=== PATIENT | female | born 1955 | race Caucasian/White ===

== ENCOUNTER 2017-02-11 15:03 | Inpatient (IN) | payer MEDICARE ==
[2017-02-11 16:48] LABS: Troponin I Less than 0.010 ng/mL (< 0.028)
[2017-02-11] MEDS ORDERED: HYDROcodone/Acetaminophen 5/325 mg Tablet ONE (16:49)
--- NOTE | 2017-02-11 17:29 | HP ---
DATE OF ADMISSION: 02/11/2017 PRIMARY CARE PHYSICIAN: Bryson Alonso M.D. CHIEF COMPLAINT: Worsening shortness of breath and lower extremity swelling. HISTORY OF PRESENT ILLNESS: Ms. Darling is a 62-year-old female with past medical history o f chronic diastolic congestive heart failure as well as COPD, hypertension, GERD, and skin cancer who presented to the emergency room at [facility] with above-mentioned complaint. History is mainly o btained by the patient herself and electronic medical records have been reviewed. She was last admit stew to our facility last year in December and was treated for acute respiratory failure due to COPD an d CHF exacerbation. Ms. Darling reports that she has been feeling shortness of breath for the last 2 or 3 weeks. She also has been having some cough, but her main symptoms are extreme swelling of her legs which is progress ively getting worse to the point where she is not even able to move around. She complains of pain in her legs which is rather chronic for her. Upon presentation to the emergency room at [facility], she was hemodynamically stable with oxygen s aturation of 94% on room air, blood pressure 134/63, pulse of 88. She was found to have significant lower extremity swelling. A 12-lead EKG was done which was unremarkable and a chest x-ray was done, which showed cardiomegaly. Her BNP was elevated to over 400. She received 1 dose of 60 mg of IV Las ix as well as oral prednisone at 60 mg along with DuoNeb and Tylenol, and was transferred to our faci lity. Here she has remained hemodynamically stable. Her cardiac enzymes are repeated and troponin i s less than 0.010. She is now being admitted for acute CHF exacerbation along with possible COPD exa cerbation. PAST MEDICAL HISTORY: 1. COPD. 2. Chronic diastolic congestive heart failure. 3. GERD. 4. Chronic back pain. 5. The patient gives a history of gastrointestinal bleed secondary to aspirin. PAST SURGICAL HISTORY: 1. Partial hysterectomy. 2. Right shoulder and wrist surgery. 3. Skin cancer removal. 4. Left ankle surgery. CODE STATUS: FULL CODE discussed with the patient. SOCIAL HISTORY: She lives with her grandson and has history of tobacco abuse, but has quit. No drug or alcohol abuse. ALLERGIES: Multiple including AMBIEN, ERYTHROMYCIN, LEVOFLOXACIN, PENICILLIN, PHENERGAN, PHENOTHIAZI PAMELLA, PNEUMOVAX, QUINOLONE, TORADOL, ULTRAM, ZOFRAN, SOLU-MEDROL, DUONEBS, SPIRIVA, TRAMADOL, ZOFRAN, ZOLPIDEM, KETOROLAC, INFLUENZA VIRUS VACCINE, AMBIEN. CURRENT MEDICATIONS: Tylenol #3 of 4 as needed for pain, enalapril 40 mg b.i.d., sucralfate 1 gram b .i.d., Protonix 40 mg daily, acetic acid otic solution, Lasix 40 mg daily, amlodipine 5 mg daily, Com bivent as needed, metoprolol tartrate 25 mg daily, epinephrine pen subcutaneous as needed, flunisolid e spray both nares b.i.d., fluticasone nasal spray b.i.d., and Flexeril 5 mg as needed. These were f urther needed to be confirmed. REVIEW OF SYSTEMS: The following complete review of systems was negative, unless otherwise mentioned in the HPI or below: Constitutional: Weight loss or gain, ability to conduct usual activities. Skin: Rash, itching. Eyes: Double vision, pain. ENT/Mouth: Nose bleeding, neck stiffness, pain, tenderness. Cardiovascular: Palpitations, dyspnea on exertion, orthopnea. Respiratory: Shortness of breath, wheezing, cough, hemoptysis, fever or night sweats. Gastrointestinal: Poor appetite, abdominal pain, heartburn, nausea, vomiting, constipation, or diarr hea. Genitourinary: Urgency, frequency, dysuria, nocturia. Musculoskeletal: Pain, swelling. Neurologic/Psychiatric: Anxiety, depression. Allergy/Immunologic: Skin rash, bleeding tendency. It is negative except for those mentioned in the history and physical. LABORATORY DATA AND IMAGING: On laboratory examination, her CBC shows WBCs of 5.9, hemoglobin 10.4, and platelet count of 227. PT and INR within normal limits. PTT is slightly elevated at 50. Serum chemistries show blood sugar at 74, BNP of 437. Her CK-MB is 2.4, troponin less than 0.010. Chest x -ray by my review does not have any particular evidence of pulmonary vascular congestion or infiltrat e. She does have cardiomegaly. Twelve lead EKG by my review shows normal sinus rhythm as above. PHYSICAL EXAMINATION: VITAL SIGNS: Her most recent vital signs include blood pressure 149/66, pulse of 92, respirations 20 , saturating 96% on 2 liters oxygen, and temperature 97.7. GENERAL: She is in no acute distress, does appear somewhat pale, but awake, alert, and oriented x3. She is very talkative and has no respiratory issues with incessant stalking. HEENT: Mucous membrane is moist and pink. No oropharyngeal exudate or erythema. Head is normocepha lic and atraumatic. Pupils are equal and reactive to light and accommodation. Extraocular movements intact. She has skin cancer lesions on her forehead, mainly on the right side. NECK: Supple without any lymphadenopathy, JVD or bruit. CHEST: Clear to auscultation with exception of few bibasilar rales. No wheezing appreciated. Rate and rhythm is regular without any murmur, rubs or gallops. ABDOMEN: Soft with small periumbilical hernia, no guarding, rebound or rigidity. No fluid noticed. EXTREMITIES: Show significant edema, bilaterally which is rather nonpitting. VASCULAR: +2 pedal pulses felt bilaterally. NEUROLOGIC: Examination is nonfocal. SKIN: Free of any rashes, bruises or petechia. PSYCHIATRIC: Normal affect. IMPRESSION AND PLAN: 1. Acute congestive heart failure exacerbation, diastolic in nature. At this time, she will be admi tted to telemetry unit for fluid removal. We will continue her on IV Lasix along with fluid restrict ion and strict I's and O's and daily weights. We will consult [facility] for discharge and consult cardiac rehabilitation inpatient and outpatient. We will also repeat a transthoracic echoca rdiogram. Her last echocardiogram was done in 2016, which showed diastolic dysfunction with preserve d EF of 55%-60%. She did have elevated right ventricular systolic pressures in excess of 50 mmHg. T he patient will also be educated about heart failure and dietary compliance. 2. Acute chronic obstructive pulmonary disease exacerbation. She has mild exacerbation of her chron ic obstructive pulmonary disease. She gives history of using her inhalers multiple times a day witho ut benefit. At this time, she will be treated with high doses of oral steroids given her allergy to IV STEROIDS. She will be treated empirically with oral antibiotic given her presentation with cough. The patient reported that she can safely take Keflex. We will also continue with nebulizers as nee ded as well as oxygen, Mucinex and supportive care. 3. History of hypertension. We will restart her home medication.
[2017-02-11] MEDS ORDERED: hydrALAZINE 20 MG/ML VIAL SLOW IVP PRN (18:19)
[2017-02-11] MEDS ORDERED: Bisacodyl 5 MG TAB PO PRN ×2 (18:19)
[2017-02-11] MEDS ORDERED: Mag-Al 1200 mg/1200 mg/30 ML UDCUP PO PRN (18:19)
[2017-02-11] MEDS ORDERED: Senokot 8.6 MG TAB PO PRN ×2 (18:19)
[2017-02-11] MEDS ORDERED: Acetaminophen 325 MG TAB PO PRN (18:19)
[2017-02-11] MEDS ORDERED: Benzonatate 100 MG CAP PO PRN (18:19)
[2017-02-11] MEDS ORDERED: Calcium Carbonate 500 MG ChewTAB PO PRN (18:19)
[2017-02-11] MEDS ORDERED: Diabetic Tussin 200 MG/10 ML UDCUP PO PRN (18:19)
[2017-02-11] MEDS ORDERED: Loratadine 10 MG TAB PO PRN (18:19)
[2017-02-11] MEDS ORDERED: cloNIDine 0.1 MG TAB PO PRN (18:19)
[2017-02-11] MEDS ORDERED: Cephalexin 250 MG CAP PO SCH (18:45)
[2017-02-11 20:00] LABS: Troponin I Less than 0.010 ng/mL (< 0.028)
[2017-02-11] MEDS: guaiFENesin ER 600 MG TAB PO SCH (20:40)
[2017-02-11] MEDS: HYDROcodone/Acetaminophen 5/325 mg Tablet PO PRN (20:41)
[2017-02-11] MEDS: FlunisoLIDE 0.025% Nasal Spray 25 ml Bottle EA NARE SCH (20:43)
[2017-02-11] MEDS: Sucralfate 1 GM TAB PO SCH (20:43)
[2017-02-11] MEDS ORDERED: Famotidine 20 MG TAB PO SCH (21:00)
[2017-02-11] MEDS ORDERED: Furosemide 40 MG/4 ML VIAL SLOW IVP SCH (22:00)
[2017-02-11 23:11] LABS: Troponin I Less than 0.010 ng/mL (< 0.028)
[2017-02-11] MEDS: Cephalexin 250 MG CAP PO SCH (23:47)
[2017-02-12] MEDS: HYDROcodone/Acetaminophen 5/325 mg Tablet PO PRN ×5 (01:36→20:35)
[2017-02-12 05:30] LABS: #Lymphocytes 1.4 thou/uL (1.20-3.40); #Monocytes 0.4 thou/uL (0.11-0.59); #Neutrophils 2.9 thou/uL (1.40-6.50); %Basophils 0.5 % (0.0-1.0); %Eosinophils 0.2 % (0.0-10.0); %Lymphocytes 29.3 % (21.0-51.0); %Monocytes 8.6 % (0.0-10.0); Mean Platelet Volume 7.2 fL (7.4-10.4); Red Blood Cell (RBC) Count 2.91 mill/uL (4.20-5.40); White Blood Cell (WBC) Count 4.7 thou/uL (4.8-10.8)
[2017-02-12 05:45] LABS: Anion Gap 9 mmol/L (10-20); BUN (Urea Nitrogen) 12 mg/dL (9.8-20.1); Calc. Creatinine Clearance 102 mL/min (70-130); Calcium 7.6 mg/dL (7.8-10.44); Carbon Dioxide 34 mmol/L (23-31); Chloride 98 mmol/L (98-107); Estimated GFR-MDRD Greater than 90
[2017-02-12] MEDS: Furosemide 40 MG/4 ML VIAL SLOW IVP SCH ×2 (06:33→15:32)
[2017-02-12] MEDS: Cephalexin 250 MG CAP PO SCH ×3 (06:33→18:18)
--- NOTE | 2017-02-12 07:52 | ULT ---
BILATERAL LOWER EXTREMITY VENOUS DOPPLER ULTRASOUND: Date: 02/12/17 COMPARISON: None. HISTORY: Bilateral lower extremity pain, swelling, edema, redness. TECHNIQUE: Multiplanar Driver scale sonographic imaging of the venous structures of bilateral lower extremities ob tained with color flow and spectral analysis. FINDINGS: Bilateral common femoral veins, greater saphenous veins, profunda femoral veins, femoral veins, popli teal veins, and posterior tibial veins are patent. Bilateral anterior tibial veins are patent. There is normal blood flow, augmentation, and compression within the deep venous system bilaterally. No malena dence for deep venous thrombosis on either side. IMPRESSION: No evidence for deep venous thrombosis of either lower extremity. POS: [facility]
[2017-02-12] MEDS: predniSONE 50 MG TAB PO SCH (08:54)
[2017-02-12] MEDS: guaiFENesin ER 600 MG TAB PO SCH ×2 (08:54→20:34)
[2017-02-12] MEDS: Sucralfate 1 GM TAB PO SCH ×2 (08:54→20:35)
[2017-02-12] MEDS: FlunisoLIDE 0.025% Nasal Spray 25 ml Bottle EA NARE SCH ×2 (08:55→20:34)
[2017-02-12] MEDS ORDERED: Amlodipine 5 MG TAB PO SCH (09:00)
[2017-02-12] MEDS: Enoxaparin Sodium 40 MG/0.4 ML SYRINGE SC SCH (10:58)
[2017-02-12 12:32] LABS: Hematocrit 30.3 % (36.0-47.0)
--- NOTE | 2017-02-12 14:58 | PDOC.PN ---
- Subjective Encounter Start Date: 02/12/17 Encounter Start Time: 14:55 Subjective: feels better.breathing easier. -: per nursing,refusing many meds - Objective MAR Reviewed: Yes Vital Signs & Weight: Vital Signs (12 hours) Temp Pulse Resp BP Pulse Ox 02/12/17 13:22 97 22 H 98 02/12/17 12:00 98.0 F 102 H 20 149/66 H 97 02/12/17 08:03 99.3 F 94 20 112/53 L 96 02/12/17 04:00 98.4 F 97 20 120/60 96 Weight Weight 144 lb 6.4 oz I&O: 02/11/17 02/12/17 02/13/17 06:59 06:59 06:59 Intake Total 768 Balance 768 Result Diagrams: 02/12/17 12:23 02/12/17 04:00 Additional Labs: Microbiology 02/11/17 20:32 Nasopharyngeal swab Influenza Types A,B Direct EIA - Final 02/11/17 13:54 Stool - Pending Stool Occult Blood (JUAN DAVID) - Final Laboratory Tests 02/11/17 02/11/17 02/11/17 11:00 16:10 19:24 Hgb 10.4 L Troponin I Less than 0.010 Less than 0.010 02/11/17 02/12/17 22:30 04:00 Hgb 8.1 L Troponin I Less than 0.010 Phys Exam - Physical Examination Constitutional: NAD HEENT: PERRLA, moist MMs, sclera anicteric, oral pharynx no lesions Neck: no nodes, no JVD, supple, full ROM Respiratory: no wheezing, no rales, no rhonchi, clear to auscultation bilateral Cardiovascular: RRR, no significant murmur Gastrointestinal: soft, non-tender, no distention, positive bowel sounds Musculoskeletal: no edema, pulses present Neurological: non-focal, normal sensation, moves all 4 limbs Psychiatric: normal affect, A&O x 3 Skin: no rash Dx/Plan (1) Acute on chronic respiratory failure with hypoxemia Code(s): J96.21 - ACUTE AND CHRONIC RESPIRATORY FAILURE WITH HYPOXIA Status: Acute (2) Acute diastolic CHF (congestive heart failure) Code(s): I50.31 - ACUTE DIASTOLIC (CONGESTIVE) HEART FAILURE Status: Acute (3) COPD with exacerbation Code(s): J44.1 - CHRONIC OBSTRUCTIVE PULMONARY DISEASE W (ACUTE) EXACERBATION Status: Acute (4) Hypertension Code(s): I10 - ESSENTIAL (PRIMARY) HYPERTENSION Status: Chronic (5) KIMBERLY (iron deficiency anemia) Code(s): D50.9 - IRON DEFICIENCY ANEMIA, UNSPECIFIED Status: Acute - Plan continue antibiotics, respiratory therapy, incentive spirometry, out of bed/ ambulate, DVT proph w/SCDs cont diuresis w strict I/Os.monitor weight.monitor renal Fx -: ECHO pending.cont home meds. -: Pt reports H/O GIB earlier this year requiring EGD twice.No ASA/NSAIDs -: cont Sucralfate,PPI> -: Hb slightly low but no hematochezia/melena.hemodynamically stable * .on Chr home O2 * cont nebs.Pt requesting scheduled nebs.tolerating rpn w/o allergic reaction. * cont empiric ABx.Cont Steroids. * restart BB. DC amlodipine as pt does not take it at home * am labs Review of Systems - Review of Systems Constitutional: negative: Fever, Chills, Sweats, Weakness, Malaise, Other ENT: negative: Ear Pain, Ear Discharge, Nose Pain, Nose Discharge, Nose Congestion, Mouth Pain, Mouth Swelling, Throat Pain, Throat Swelling, Other Respiratory: negative: Cough, Dry, Shortness of Breath, Hemoptysis, SOB with Excertion, Pleuritic Pain, Sputum, Wheezing Cardiovascular: negative: Chest Pain, Palpitations, Orthopnea, Paroxysmal Noc. Dyspnea, Edema, Light Headedness, Other Gastrointestinal: negative: Nausea, Vomiting, Abdominal Pain, Diarrhea, Constipation, Melena, Hematochezia, Other Genitourinary: negative: Dysuria, Frequency, Incontinence, Hematuria, Retention , Other Musculoskeletal: negative: Neck Pain, Shoulder Pain, Arm Pain, Back Pain, Hand Pain, Leg Pain, Foot Pain, Other Neurological: negative: Weakness, Numbness, Incoordination, Change in Speech, Confusion, Seizures, Other - Medications/Allergies Allergies/Adverse Reactions: Allergies Allergy/AdvReac Type Severity Reaction Status Date / Time erythromycin base Allergy Verified 12/13/15 02:00 Influenza Virus Vaccines Allergy Verified 12/13/15 02:00 ketorolac tromethamine Allergy Verified 12/13/15 02:00 [From Toradol] levofloxacin [From Levaquin] Allergy Verified 12/13/15 02:00 methylprednisolone sodium Allergy Verified 12/13/15 02:00 succinate [From Solu-Medrol] ondansetron HCl Allergy Verified 12/13/15 02:00 [From Zofran (as hydrochloride)] Penicillins Allergy Verified 12/13/15 02:00 Phenothiazines Allergy Verified 12/13/15 02:00 pneumococcal vaccine Allergy Verified 12/13/15 02:00 promethazine HCl Allergy Verified 12/13/15 02:00 [From Phenergan] Quinolones Allergy Verified 12/13/15 02:00 Sulfa (Sulfonamide Allergy Verified 12/13/15 02:00 Antibiotics) tiotropium bromide Allergy Verified 12/13/15 02:00 [From Spiriva with HandiHaler] tramadol HCl [From Ultram] Allergy Verified 12/13/15 02:00 zolpidem Allergy Verified 12/13/15 02:00 blue cheese Allergy Anaphylaxis Uncoded 02/11/17 18:00 Medications: Current Medications Acetaminophen (Tylenol) 650 mg PO Q4H PRN PRN Reason: Headache/Fever or Pain Hydrocodone Bitart/Acetaminophen ([place] 5/325) 1 tab PO Q4H PRN PRN Reason: pain Last Admin: 02/12/17 11:09 Dose: 1 tab Al Hydroxide/Mg Hydroxide (Maalox) 30 ml PO Q6H PRN PRN Reason: Heartburn or Indigestion Albuterol/Ipratropium (Duoneb) 3 ml NEB [id number] PRN PRN Reason: SOB &/or Wheezing Albuterol/Ipratropium (Duoneb) 3 ml NEB [id number] [facility] Last Admin: 02/12/17 13:22 Dose: 3 ml Amlodipine Besylate (Norvasc) 5 mg PO DAILY [facility] Last Admin: 02/12/17 08:54 Dose: Not Given Benzonatate (Tessalon) 100 mg PO Q4H PRN PRN Reason: Cough Bisacodyl (Dulcolax) 10 mg PO DAILYPRN PRN PRN Reason: Constipation Calcium Carbonate (Tums) 1,000 mg PO Q4H PRN PRN Reason: Heartburn or Indigestion Cephalexin (Keflex) 250 mg PO Q6HR [facility] Last Admin: 02/12/17 11:15 Dose: 250 mg Clonidine (Catapres) 0.1 mg PO Q4H PRN PRN Reason: Systolic BP > 160 Enoxaparin Sodium (Lovenox) 40 mg SC 0900 [facility] Last Admin: 02/12/17 10:58 Dose: 40 mg Flunisolide (Nasalide 0.025%) 2 sprays EA NARE BID [facility] Last Admin: 02/12/17 08:55 Dose: 2 spr Furosemide (Lasix) 40 mg SLOW IVP 0600,1400 [facility] Last Admin: 02/12/17 06:33 Dose: 40 mg Guaifenesin (Robitussin Sf) 200 mg PO Q4H PRN PRN Reason: Cough Guaifenesin (Mucinex) 600 mg PO Q12HR [facility] Last Admin: 02/12/17 08:54 Dose: Not Given Hydralazine HCl (Apresoline) 10 mg SLOW IVP Q4H PRN PRN Reason: Systolic BP > 170 Loratadine (Claritin) 10 mg PO DAILYPRN PRN PRN Reason: Sinus Symptoms Lorazepam (Ativan) 1 mg PO Q4H PRN PRN Reason: Anxiety/Agitation Pantoprazole Sodium (Protonix) 40 mg PO DAILY [facility] Last Admin: 02/12/17 08:54 Dose: 40 mg Prednisone (Prednisone) 50 mg PO QAM-WM [facility] Last Admin: 02/12/17 08:54 Dose: 50 mg Senna (Senokot) 2 tab PO HSPRN PRN PRN Reason: Constipation Sodium Chloride (Flush - Normal Saline) 10 ml IVF Q12HR [facility] Sodium Chloride (Flush - Normal Saline) 10 ml IVF PRN PRN PRN Reason: Saline Flush Sucralfate (Carafate) 1 gm PO BID [facility] Last Admin: 02/12/17 08:54 Dose: 1 gm
[2017-02-12] MEDS: Metoprolol Tartrate 25 MG TAB PO SCH (20:35)
[2017-02-13] MEDS: Cephalexin 250 MG CAP PO SCH ×4 (00:13→18:10)
[2017-02-13] MEDS: HYDROcodone/Acetaminophen 5/325 mg Tablet PO PRN ×4 (04:07→20:54)
[2017-02-13 05:06] LABS: #Lymphocytes 1.5 thou/uL (1.20-3.40); #Monocytes 0.4 thou/uL (0.11-0.59); #Neutrophils 2.8 thou/uL (1.40-6.50); %Basophils 0.1 % (0.0-1.0); %Eosinophils 0.4 % (0.0-10.0); %Lymphocytes 31.7 % (21.0-51.0); Hematocrit 27.8 % (36.0-47.0); Mean Platelet Volume 7.3 fL (7.4-10.4); Red Blood Cell (RBC) Count 3.09 mill/uL (4.20-5.40); White Blood Cell (WBC) Count 4.6 thou/uL (4.8-10.8)
[2017-02-13 05:31] LABS: Anion Gap 10 mmol/L (10-20); BUN (Urea Nitrogen) 14 mg/dL (9.8-20.1); Calc. Creatinine Clearance 107 mL/min (70-130); Calcium 7.6 mg/dL (7.8-10.44); Carbon Dioxide 35 mmol/L (23-31); Chloride 96 mmol/L (98-107); Estimated GFR-MDRD Greater than 90
[2017-02-13] MEDS: Furosemide 40 MG/4 ML VIAL SLOW IVP SCH (06:26)
[2017-02-13] MEDS: Metoprolol Tartrate 25 MG TAB PO SCH ×2 (08:44→20:55)
[2017-02-13] MEDS: Sucralfate 1 GM TAB PO SCH ×2 (08:44→20:58)
[2017-02-13] MEDS: predniSONE 50 MG TAB PO SCH (08:45)
[2017-02-13] MEDS: guaiFENesin ER 600 MG TAB PO SCH ×3 (08:45→20:54)
[2017-02-13] MEDS: Enoxaparin Sodium 40 MG/0.4 ML SYRINGE SC SCH (08:48)
[2017-02-13] MEDS: FlunisoLIDE 0.025% Nasal Spray 25 ml Bottle EA NARE SCH ×2 (08:49→20:54)
[2017-02-13] MEDS ORDERED: Potassium Chloride 20 MEQ TAB PO SCH (09:00)
[2017-02-13] MEDS: Furosemide 20 MG TAB PO SCH ×2 (10:40→14:58)
--- NOTE | 2017-02-13 13:38 | PDOC.PN ---
- Subjective Encounter Start Date: 02/13/17 Encounter Start Time: 13:36 Subjective: feels much better. denies any SOB.some wheezing persists. -: no hematochezia/melena - Objective Resuscitation Status: Laboratory Tests 02/11/17 02/11/17 02/11/17 11:00 16:10 19:24 Hgb 10.4 L Troponin I Less than 0.010 Less than 0.010 02/11/17 02/12/17 02/12/17 22:30 04:00 12:23 Hgb 8.1 L 9.4 L Troponin I Less than 0.010 Vital Signs & Weight: Vital Signs (12 hours) Temp Pulse Resp BP Pulse Ox 02/13/17 12:35 79 18 100 02/13/17 11:00 98 F 79 14 135/63 96 02/13/17 08:15 98.5 F 86 17 94 L 02/13/17 07:30 98.5 F 86 17 121/59 L 94 L 02/13/17 06:40 96 16 99 02/13/17 04:00 97.9 F 94 16 144/67 H 95 Weight Weight 147 lb 4.8 oz I&O: 02/12/17 02/13/17 02/14/17 06:59 06:59 06:59 Intake Total 768 1340 Output Total 3150 Balance 768 -1810 Result Diagrams: 02/13/17 04:22 02/13/17 04:22 Radiology Reviewed by me: Yes (ECHO-diastolic dysfunction) Phys Exam - Physical Examination Constitutional: NAD HEENT: PERRLA, moist MMs, sclera anicteric, oral pharynx no lesions Neck: no nodes, no JVD, supple, full ROM Respiratory: no rales, wheezing present Cardiovascular: RRR, no significant murmur Gastrointestinal: soft, non-tender, no distention, positive bowel sounds Musculoskeletal: pulses present, edema present (improved) Neurological: non-focal, normal sensation, moves all 4 limbs Psychiatric: normal affect, A&O x 3 Skin: no rash Dx/Plan (1) Acute on chronic respiratory failure with hypoxemia Code(s): J96.21 - ACUTE AND CHRONIC RESPIRATORY FAILURE WITH HYPOXIA Status: Acute (2) Acute diastolic CHF (congestive heart failure) Code(s): I50.31 - ACUTE DIASTOLIC (CONGESTIVE) HEART FAILURE Status: Acute (3) COPD with exacerbation Code(s): J44.1 - CHRONIC OBSTRUCTIVE PULMONARY DISEASE W (ACUTE) EXACERBATION Status: Acute (4) Hypertension Code(s): I10 - ESSENTIAL (PRIMARY) HYPERTENSION Status: Chronic (5) KIMBERLY (iron deficiency anemia) Code(s): D50.9 - IRON DEFICIENCY ANEMIA, UNSPECIFIED Status: Acute (6) H/O: GI bleed Code(s): Z87.19 - PERSONAL HISTORY OF OTHER DISEASES OF THE DIGESTIVE SYSTEM Status: Chronic - Plan continue antibiotics, PT/OT, social worker palliative care, respiratory therapy, incentive spirometry, out of bed/ambulate, DVT proph w/SCDs Wheezing today but stable and clinically improved. -: will transfer to [facility] tomorrow. -: Change IV lasix to PO.edema improving. -: OP HF clinic F/U. -: will need HH on DC.refusing rehab placement. * .Pt advised to change BB given COPD.will d/w w PCP * H/H stable. no active GIB.cont Sucralfate,PPI. no ASA,NSAIds Review of Systems - Review of Systems Constitutional: negative: Fever, Chills, Sweats, Weakness, Malaise, Other Respiratory: SOB with Excertion, Wheezing. negative: Cough, Dry, Shortness of Breath, Hemoptysis, Pleuritic Pain, Sputum Cardiovascular: negative: Chest Pain, Palpitations, Orthopnea, Paroxysmal Noc. Dyspnea, Edema, Light Headedness, Other Gastrointestinal: negative: Nausea, Vomiting, Abdominal Pain, Diarrhea, Constipation, Melena, Hematochezia, Other Genitourinary: negative: Dysuria, Frequency, Incontinence, Hematuria, Retention , Other Musculoskeletal: negative: Neck Pain, Shoulder Pain, Arm Pain, Back Pain, Hand Pain, Leg Pain, Foot Pain, Other Neurological: negative: Weakness, Numbness, Incoordination, Change in Speech, Confusion, Seizures, Other - Medications/Allergies Allergies/Adverse Reactions: Allergies Allergy/AdvReac Type Severity Reaction Status Date / Time erythromycin base Allergy Verified 02/13/17 11:52 Influenza Virus Vaccines Allergy Verified 02/13/17 11:52 ketorolac tromethamine Allergy Verified 02/13/17 11:52 [From Toradol] levofloxacin [From Levaquin] Allergy Verified 02/13/17 11:52 methylprednisolone sodium Allergy Verified 02/13/17 11:52 succinate [From Solu-Medrol] ondansetron HCl Allergy Verified 02/13/17 11:52 [From Zofran (as hydrochloride)] Penicillins Allergy Verified 02/13/17 11:52 Phenothiazines Allergy Verified 02/13/17 11:52 pneumococcal vaccine Allergy Verified 02/13/17 11:52 promethazine HCl Allergy Verified 02/13/17 11:52 [From Phenergan] Quinolones Allergy Verified 02/13/17 11:52 Sulfa (Sulfonamide Allergy Verified 02/13/17 11:52 Antibiotics) tiotropium bromide Allergy Verified 02/13/17 11:52 [From Spiriva with HandiHaler] tramadol HCl [From Ultram] Allergy Verified 02/13/17 11:52 zolpidem Allergy Verified 02/13/17 11:52 blue cheese Allergy Severe Anaphylaxis Uncoded 02/13/17 11:52 Medications: Current Medications Acetaminophen (Tylenol) 650 mg PO Q4H PRN PRN Reason: Headache/Fever or Pain Hydrocodone Bitart/Acetaminophen ([place] 5/325) 1 tab PO Q4H PRN PRN Reason: pain Last Admin: 02/13/17 08:45 Dose: 1 tab Al Hydroxide/Mg Hydroxide (Maalox) 30 ml PO Q6H PRN PRN Reason: Heartburn or Indigestion Albuterol/Ipratropium (Duoneb) 3 ml NEB [id number] PRN PRN Reason: SOB &/or Wheezing Albuterol/Ipratropium (Duoneb) 3 ml NEB [id number] [facility] Last Admin: 02/13/17 12:35 Dose: 3 ml Benzonatate (Tessalon) 100 mg PO Q4H PRN PRN Reason: Cough Bisacodyl (Dulcolax) 10 mg PO DAILYPRN PRN PRN Reason: Constipation Calcium Carbonate (Tums) 1,000 mg PO Q4H PRN PRN Reason: Heartburn or Indigestion Cephalexin (Keflex) 250 mg PO Q6HR [facility] Last Admin: 02/13/17 10:42 Dose: 250 mg Clonidine (Catapres) 0.1 mg PO Q4H PRN PRN Reason: Systolic BP > 160 Enoxaparin Sodium (Lovenox) 40 mg SC 0900 [facility] Last Admin: 02/13/17 08:48 Dose: 40 mg Flunisolide (Nasalide 0.025%) 2 sprays EA NARE BID [facility] Last Admin: 02/13/17 08:49 Dose: 2 spr Furosemide (Lasix) 40 mg PO 0900,1400 [facility] Last Admin: 02/13/17 10:40 Dose: 40 mg Guaifenesin (Robitussin Sf) 200 mg PO Q4H PRN PRN Reason: Cough Guaifenesin (Mucinex) 600 mg PO Q12HR [facility] Last Admin: 02/13/17 10:46 Dose: Not Given Hydralazine HCl (Apresoline) 10 mg SLOW IVP Q4H PRN PRN Reason: Systolic BP > 170 Loratadine (Claritin) 10 mg PO DAILYPRN PRN PRN Reason: Sinus Symptoms Lorazepam (Ativan) 1 mg PO Q4H PRN PRN Reason: Anxiety/Agitation Metoprolol Tartrate (Lopressor) 25 mg PO BID [facility] Last Admin: 02/13/17 08:44 Dose: 25 mg Pantoprazole Sodium (Protonix) 40 mg PO DAILY [facility] Last Admin: 02/13/17 08:45 Dose: 40 mg Potassium Chloride (K-Dur) 20 meq PO QAM-[facility] Prednisone (Prednisone) 50 mg PO QAM-[facility] Last Admin: 02/13/17 08:45 Dose: 50 mg Senna (Senokot) 2 tab PO HSPRN PRN PRN Reason: Constipation Sodium Chloride (Flush - Normal Saline) 10 ml IVF Q12HR [facility] Last Admin: 02/13/17 08:46 Dose: 10 ml Sodium Chloride (Flush - Normal Saline) 10 ml IVF PRN PRN PRN Reason: Saline Flush Last Admin: 02/12/17 15:33 Dose: 10 ml Sucralfate (Carafate) 1 gm PO BID [facility] Last Admin: 02/13/17 08:44 Dose: 1 gm
[2017-02-14] MEDS: HYDROcodone/Acetaminophen 5/325 mg Tablet PO PRN ×6 (01:18→22:29)
[2017-02-14] MEDS: Cephalexin 250 MG CAP PO SCH ×4 (01:19→17:52)
[2017-02-14 06:21] LABS: Anion Gap 6 mmol/L (10-20); BUN (Urea Nitrogen) 14 mg/dL (9.8-20.1); Calc. Creatinine Clearance 121 mL/min (70-130); Calcium 7.5 mg/dL (7.8-10.44); Carbon Dioxide 37 mmol/L (23-31); Chloride 96 mmol/L (98-107); Estimated GFR-MDRD Greater than 90
[2017-02-14] MEDS: Furosemide 20 MG TAB PO SCH ×2 (09:25→14:40)
[2017-02-14] MEDS: Sucralfate 1 GM TAB PO SCH ×2 (09:26→21:46)
[2017-02-14] MEDS: guaiFENesin ER 600 MG TAB PO SCH ×2 (09:26→21:46)
[2017-02-14] MEDS: Potassium Chloride 20 MEQ TAB PO SCH (09:26)
[2017-02-14] MEDS: Metoprolol Tartrate 25 MG TAB PO SCH ×2 (09:27→21:46)
[2017-02-14] MEDS: predniSONE 50 MG TAB PO SCH (09:27)
[2017-02-14] MEDS: FlunisoLIDE 0.025% Nasal Spray 25 ml Bottle EA NARE SCH ×2 (09:27→21:46)
[2017-02-14] MEDS: Enoxaparin Sodium 40 MG/0.4 ML SYRINGE SC SCH (10:03)
[2017-02-14 12:42] LABS: Hematocrit 30.4 % (36.0-47.0)
--- NOTE | 2017-02-14 13:24 | PDOC.PN ---
- Subjective Encounter Start Date: 02/14/17 Encounter Start Time: 07:40 Pt seen for followup re: acute on chronic hypoxic respiratory failure. Reports LUQ pain, sharp, on and off, no accompanying nausea, vomiting or diarrhea, no fevers. Denies melena/hematochezia. - Objective MAR Reviewed: Yes Vital Signs & Weight: Vital Signs (12 hours) Temp Pulse Resp BP Pulse Ox 02/14/17 11:28 98.0 F 65 20 127/67 02/14/17 09:37 99.3 F 78 24 H 99 02/14/17 07:43 99.3 F 78 24 H 130/63 99 02/14/17 04:06 98.4 F 83 18 129/60 97 02/14/17 02:55 99 Weight Weight 134 lb 14.766 oz I&O: 02/13/17 02/14/17 02/15/17 06:59 06:59 06:59 Intake Total 1340 1050 Output Total 3150 1100 Balance -1810 -50 Result Diagrams: 02/14/17 12:10 02/14/17 05:25 Phys Exam - Physical Examination Constitutional: NAD HEENT: PERRLA, moist MMs, sclera anicteric, oral pharynx no lesions Neck: no nodes, no JVD, supple, full ROM Respiratory: no rales, no rhonchi, wheezing present Cardiovascular: RRR, no rub Gastrointestinal: soft, non-tender, no distention, positive bowel sounds Musculoskeletal: pulses present, edema present Neurological: moves all 4 limbs Psychiatric: normal affect, A&O x 3 Skin: no rash, normal turgor, cap refill <2 seconds Dx/Plan (1) Acute on chronic respiratory failure with hypoxemia Code(s): J96.21 - ACUTE AND CHRONIC RESPIRATORY FAILURE WITH HYPOXIA Status: Acute (2) COPD with exacerbation Code(s): J44.1 - CHRONIC OBSTRUCTIVE PULMONARY DISEASE W (ACUTE) EXACERBATION Status: Acute (3) CHF (congestive heart failure) Code(s): I50.9 - HEART FAILURE, UNSPECIFIED Status: Chronic Qualifiers: Congestive heart failure type: unspecified congestive heart failure type (4) Hypertension Code(s): I10 - ESSENTIAL (PRIMARY) HYPERTENSION Status: Chronic (5) H/O: GI bleed Code(s): Z87.19 - PERSONAL HISTORY OF OTHER DISEASES OF THE DIGESTIVE SYSTEM Status: Chronic (6) KIMBERLY (iron deficiency anemia) Code(s): D50.9 - IRON DEFICIENCY ANEMIA, UNSPECIFIED Status: Chronic - Plan continue antibiotics, PT/OT, out of bed/ambulate, DVT proph w/lovenox * . Continue oxygen, steroids, bronchodilators and antibiotics. Check stool for occult blood (h/o recurrent GI bleed, reports having gastric ulcers, now on steroids). Continue protonix, carafate. Continue Lovenox for now. If hemoglobin drops, stop Lovenox. Review of Systems - Review of Systems Constitutional: negative: Fever, Chills, Sweats, Weakness, Malaise Respiratory: Cough, Dry, Shortness of Breath, SOB with Excertion. negative: Hemoptysis, Pleuritic Pain, Sputum, Wheezing Cardiovascular: negative: Chest Pain, Palpitations, Orthopnea, Paroxysmal Noc. Dyspnea, Edema, Light Headedness Gastrointestinal: Abdominal Pain. negative: Nausea, Vomiting, Diarrhea, Constipation, Melena, Hematochezia Genitourinary: negative: Dysuria, Frequency, Incontinence, Hematuria, Retention - Medications/Allergies Allergies/Adverse Reactions: Allergies Allergy/AdvReac Type Severity Reaction Status Date / Time erythromycin base Allergy Verified 02/13/17 11:52 Influenza Virus Vaccines Allergy Verified 02/13/17 11:52 ketorolac tromethamine Allergy Verified 02/13/17 11:52 [From Toradol] levofloxacin [From Levaquin] Allergy Verified 02/13/17 11:52 methylprednisolone sodium Allergy Verified 02/13/17 11:52 succinate [From Solu-Medrol] ondansetron HCl Allergy Verified 02/13/17 11:52 [From Zofran (as hydrochloride)] Penicillins Allergy Verified 02/13/17 11:52 Phenothiazines Allergy Verified 02/13/17 11:52 pneumococcal vaccine Allergy Verified 02/13/17 11:52 promethazine HCl Allergy Verified 02/13/17 11:52 [From Phenergan] Quinolones Allergy Verified 02/13/17 11:52 Sulfa (Sulfonamide Allergy Verified 02/13/17 11:52 Antibiotics) tiotropium bromide Allergy Verified 02/13/17 11:52 [From Spiriva with HandiHaler] tramadol HCl [From Ultram] Allergy Verified 02/13/17 11:52 zolpidem Allergy Verified 02/13/17 11:52 blue cheese Allergy Severe Anaphylaxis Uncoded 02/13/17 11:52 Medications: Current Medications Acetaminophen (Tylenol) 650 mg PO Q4H PRN PRN Reason: Headache/Fever or Pain Hydrocodone Bitart/Acetaminophen ([place] 5/325) 1 tab PO Q4H PRN PRN Reason: pain Last Admin: 02/14/17 09:28 Dose: 1 tab Al Hydroxide/Mg Hydroxide (Maalox) 30 ml PO Q6H PRN PRN Reason: Heartburn or Indigestion Albuterol/Ipratropium (Duoneb) 3 ml NEB [id number] PRN PRN Reason: SOB &/or Wheezing Albuterol/Ipratropium (Duoneb) 3 ml NEB [id number] NAHID Last Admin: 02/14/17 09:19 Dose: 3 ml Benzonatate (Tessalon) 100 mg PO Q4H PRN PRN Reason: Cough Bisacodyl (Dulcolax) 10 mg PO DAILYPRN PRN PRN Reason: Constipation Calcium Carbonate (Tums) 1,000 mg PO Q4H PRN PRN Reason: Heartburn or Indigestion Cephalexin (Keflex) 250 mg PO Q6HR [facility] Last Admin: 02/14/17 11:59 Dose: 250 mg Clonidine (Catapres) 0.1 mg PO Q4H PRN PRN Reason: Systolic BP > 160 Enoxaparin Sodium (Lovenox) 40 mg SC 0900 [facility] Last Admin: 02/14/17 10:03 Dose: Not Given Flunisolide (Nasalide 0.025%) 2 sprays EA NARE BID [facility] Last Admin: 02/14/17 09:27 Dose: 2 spr Furosemide (Lasix) 40 mg PO 0900,1400 [facility] Last Admin: 02/14/17 09:25 Dose: 40 mg Guaifenesin (Robitussin Sf) 200 mg PO Q4H PRN PRN Reason: Cough Guaifenesin (Mucinex) 600 mg PO Q12HR [facility] Last Admin: 02/14/17 09:26 Dose: Not Given Hydralazine HCl (Apresoline) 10 mg SLOW IVP Q4H PRN PRN Reason: Systolic BP > 170 Loratadine (Claritin) 10 mg PO DAILYPRN PRN PRN Reason: Sinus Symptoms Lorazepam (Ativan) 1 mg PO Q4H PRN PRN Reason: Anxiety/Agitation Metoprolol Tartrate (Lopressor) 25 mg PO BID [facility] Last Admin: 02/14/17 09:27 Dose: 25 mg Pantoprazole Sodium (Protonix) 40 mg PO DAILY [facility] Last Admin: 02/14/17 09:27 Dose: 40 mg Potassium Chloride (K-Dur) 20 meq PO [facility] Last Admin: 02/14/17 09:26 Dose: 20 meq Prednisone (Prednisone) 50 mg PO [facility] Last Admin: 02/14/17 09:27 Dose: 50 mg Senna (Senokot) 2 tab PO HSPRN PRN PRN Reason: Constipation Sodium Chloride (Flush - Normal Saline) 10 ml IVF Q12HR [facility] Last Admin: 02/14/17 09:28 Dose: 10 ml Sodium Chloride (Flush - Normal Saline) 10 ml IVF PRN PRN PRN Reason: Saline Flush Last Admin: 02/12/17 15:33 Dose: 10 ml Sucralfate (Carafate) 1 gm PO BID [facility] Last Admin: 02/14/17 09:26 Dose: 1 gm
[2017-02-15] MEDS: Cephalexin 250 MG CAP PO SCH ×4 (00:16→21:14)
[2017-02-15] MEDS: HYDROcodone/Acetaminophen 5/325 mg Tablet PO PRN ×5 (02:56→21:14)
[2017-02-15 06:11] LABS: BUN (Urea Nitrogen) 15 mg/dL (9.8-20.1); Calc. Creatinine Clearance 109 mL/min (70-130); Calcium 7.5 mg/dL (7.8-10.44); Estimated GFR-MDRD Greater than 90
[2017-02-15 06:25] LABS: Anion Gap 11 mmol/L (10-20); Carbon Dioxide 35 mmol/L (23-31); Chloride 95 mmol/L (98-107)
[2017-02-15] MEDS: Metoprolol Tartrate 25 MG TAB PO SCH ×2 (07:37→21:14)
[2017-02-15] MEDS: Furosemide 20 MG TAB PO SCH ×2 (07:37→17:01)
[2017-02-15] MEDS: guaiFENesin ER 600 MG TAB PO SCH ×2 (07:38→21:17)
[2017-02-15] MEDS: Potassium Chloride 20 MEQ TAB PO SCH (07:38)
[2017-02-15] MEDS: predniSONE 50 MG TAB PO SCH (07:43)
[2017-02-15] MEDS: Sucralfate 1 GM TAB PO SCH ×2 (07:43→21:17)
[2017-02-15] MEDS ORDERED: Potassium Chloride 20 MEQ TAB PO SCH (09:30)
[2017-02-15 09:45] LABS: #Lymphocytes 1.1 thou/uL (1.20-3.40); #Monocytes 0.6 thou/uL (0.11-0.59); #Neutrophils 5.9 thou/uL (1.40-6.50); %Basophils 0.2 % (0.0-1.0); %Eosinophils 0.3 % (0.0-10.0); %Lymphocytes 14.4 % (21.0-51.0); %Monocytes 7.3 % (0.0-10.0); Hematocrit 29.5 % (36.0-47.0); Mean Platelet Volume 6.8 fL (7.4-10.4); Red Blood Cell (RBC) Count 3.25 mill/uL (4.20-5.40); White Blood Cell (WBC) Count 7.6 thou/uL (4.8-10.8)
[2017-02-15] MEDS: Lorazepam 1 MG TAB PO PRN (10:30)
[2017-02-15] MEDS: FlunisoLIDE 0.025% Nasal Spray 25 ml Bottle EA NARE SCH ×2 (10:31→21:16)
[2017-02-15 10:34] VITALS: BMI 149.7
--- NOTE | 2017-02-15 15:59 | PDOC.PN ---
- Subjective Encounter Start Date: 02/15/17 Encounter Start Time: 08:40 Pt seen for followup re: acute on chronic respiratory failure. Denies chest pain. SOBOE better. No abdo pain. - Objective MAR Reviewed: Yes Vital Signs & Weight: Vital Signs (12 hours) Temp Pulse Resp BP Pulse Ox 02/15/17 12:29 87 20 96 02/15/17 12:00 97.9 F 77 20 128/52 L 02/15/17 08:15 98.8 F 88 20 126/55 L 96 02/15/17 06:48 82 16 97 02/15/17 05:22 99.2 F 80 20 136/64 98 Weight Admit Weight 150 lb 3 oz Weight 135 lb 5 oz I&O: 02/14/17 02/15/17 02/16/17 06:59 06:59 06:59 Intake Total 1050 1690 Output Total 1100 Balance -50 1690 Result Diagrams: 02/15/17 09:38 02/15/17 05:17 Phys Exam - Physical Examination Constitutional: NAD HEENT: moist MMs Neck: supple Respiratory: wheezing present Cardiovascular: RRR Gastrointestinal: soft, non-tender Musculoskeletal: pulses present, edema present Neurological: moves all 4 limbs Psychiatric: normal affect Skin: no rash Dx/Plan (1) Acute on chronic respiratory failure with hypoxemia Code(s): J96.21 - ACUTE AND CHRONIC RESPIRATORY FAILURE WITH HYPOXIA Status: Acute (2) COPD with exacerbation Code(s): J44.1 - CHRONIC OBSTRUCTIVE PULMONARY DISEASE W (ACUTE) EXACERBATION Status: Acute (3) CHF (congestive heart failure) Code(s): I50.9 - HEART FAILURE, UNSPECIFIED Status: Chronic Qualifiers: Congestive heart failure type: unspecified congestive heart failure type (4) Hypertension Code(s): I10 - ESSENTIAL (PRIMARY) HYPERTENSION Status: Chronic (5) H/O: GI bleed Code(s): Z87.19 - PERSONAL HISTORY OF OTHER DISEASES OF THE DIGESTIVE SYSTEM Status: Chronic (6) KIMBERLY (iron deficiency anemia) Code(s): D50.9 - IRON DEFICIENCY ANEMIA, UNSPECIFIED Status: Chronic - Plan PT/OT, out of bed/ambulate, DVT proph w/lovenox * . Switch lasix to oral. Likely home 24-48 h Review of Systems - Review of Systems Respiratory: Cough, Shortness of Breath, SOB with Excertion. negative: Dry, Hemoptysis, Pleuritic Pain, Sputum, Wheezing Cardiovascular: negative: Chest Pain, Palpitations, Orthopnea, Paroxysmal Noc. Dyspnea, Edema, Light Headedness - Medications/Allergies Allergies/Adverse Reactions: Allergies Allergy/AdvReac Type Severity Reaction Status Date / Time erythromycin base Allergy Verified 02/13/17 11:52 Influenza Virus Vaccines Allergy Verified 02/13/17 11:52 ketorolac tromethamine Allergy Verified 02/13/17 11:52 [From Toradol] levofloxacin [From Levaquin] Allergy Verified 02/13/17 11:52 methylprednisolone sodium Allergy Verified 02/13/17 11:52 succinate [From Solu-Medrol] ondansetron HCl Allergy Verified 02/13/17 11:52 [From Zofran (as hydrochloride)] Penicillins Allergy Verified 02/13/17 11:52 Phenothiazines Allergy Verified 02/13/17 11:52 pneumococcal vaccine Allergy Verified 02/13/17 11:52 promethazine HCl Allergy Verified 02/13/17 11:52 [From Phenergan] Quinolones Allergy Verified 02/13/17 11:52 Sulfa (Sulfonamide Allergy Verified 02/13/17 11:52 Antibiotics) tiotropium bromide Allergy Verified 02/13/17 11:52 [From Spiriva with HandiHaler] tramadol HCl [From Ultram] Allergy Verified 02/13/17 11:52 zolpidem Allergy Verified 02/13/17 11:52 blue cheese Allergy Severe Anaphylaxis Uncoded 02/13/17 11:52 Medications: Current Medications Acetaminophen (Tylenol) 650 mg PO Q4H PRN PRN Reason: Headache/Fever or Pain Hydrocodone Bitart/Acetaminophen ([place] 5/325) 1 tab PO Q4H PRN PRN Reason: pain Last Admin: 02/15/17 12:32 Dose: 1 tab Al Hydroxide/Mg Hydroxide (Maalox) 30 ml PO Q6H PRN PRN Reason: Heartburn or Indigestion Albuterol/Ipratropium (Duoneb) 3 ml NEB [id number] PRN PRN Reason: SOB &/or Wheezing Albuterol/Ipratropium (Duoneb) 3 ml NEB [id number] NAHID Last Admin: 02/15/17 12:29 Dose: 3 ml Benzonatate (Tessalon) 100 mg PO Q4H PRN PRN Reason: Cough Bisacodyl (Dulcolax) 10 mg PO DAILYPRN PRN PRN Reason: Constipation Calcium Carbonate (Tums) 1,000 mg PO Q4H PRN PRN Reason: Heartburn or Indigestion Cephalexin (Keflex) 250 mg PO Q6HR [facility] Last Admin: 02/15/17 12:33 Dose: 250 mg Clonidine (Catapres) 0.1 mg PO Q4H PRN PRN Reason: Systolic BP > 160 Enoxaparin Sodium (Lovenox) 40 mg SC 0900 [facility] Last Admin: 02/14/17 10:03 Dose: Not Given Flunisolide (Nasalide 0.025%) 2 sprays EA NARE BID [facility] Last Admin: 02/15/17 10:31 Dose: 2 spr Furosemide (Lasix) 40 mg PO DAILY[facility] Guaifenesin (Robitussin Sf) 200 mg PO Q4H PRN PRN Reason: Cough Guaifenesin (Mucinex) 600 mg PO Q12HR [facility] Last Admin: 02/15/17 07:38 Dose: Not Given Hydralazine HCl (Apresoline) 10 mg SLOW IVP Q4H PRN PRN Reason: Systolic BP > 170 Loratadine (Claritin) 10 mg PO DAILYPRN PRN PRN Reason: Sinus Symptoms Lorazepam (Ativan) 1 mg PO Q4H PRN PRN Reason: Anxiety/Agitation Last Admin: 02/15/17 10:30 Dose: 1 mg Metoprolol Tartrate (Lopressor) 25 mg PO BID [facility] Last Admin: 02/15/17 07:37 Dose: 25 mg Pantoprazole Sodium (Protonix) 40 mg PO DAILY [facility] Last Admin: 02/15/17 07:38 Dose: 40 mg Potassium Chloride (K-Dur) 20 meq PO QAM[facility] Last Admin: 02/15/17 07:38 Dose: 20 meq Prednisone (Prednisone) 50 mg PO QAM[facility] Last Admin: 02/15/17 07:43 Dose: 50 mg Senna (Senokot) 2 tab PO HSPRN PRN PRN Reason: Constipation Sodium Chloride (Flush - Normal Saline) 10 ml IVF Q12HR [facility] Last Admin: 02/15/17 10:31 Dose: 10 ml Sodium Chloride (Flush - Normal Saline) 10 ml IVF PRN PRN PRN Reason: Saline Flush Last Admin: 02/12/17 15:33 Dose: 10 ml Sucralfate (Carafate) 1 gm PO BID NAHID Last Admin: 02/15/17 07:43 Dose: 1 gm
[2017-02-15] MEDS: Enoxaparin Sodium 40 MG/0.4 ML SYRINGE SC SCH (16:59)
[2017-02-16] MEDS: HYDROcodone/Acetaminophen 5/325 mg Tablet PO PRN ×3 (01:26→09:33)
[2017-02-16] MEDS: Cephalexin 250 MG CAP PO SCH ×4 (04:54→17:21)
[2017-02-16 05:52] LABS: #Lymphocytes 1.7 thou/uL (1.20-3.40); #Monocytes 0.8 thou/uL (0.11-0.59); #Neutrophils 3.9 thou/uL (1.40-6.50); %Basophils 0.1 % (0.0-1.0); %Eosinophils 0.6 % (0.0-10.0); %Lymphocytes 26.6 % (21.0-51.0); %Monocytes 12.1 % (0.0-10.0); Hematocrit 27.8 % (36.0-47.0); Mean Platelet Volume 7.3 fL (7.4-10.4); Red Blood Cell (RBC) Count 3.08 mill/uL (4.20-5.40); White Blood Cell (WBC) Count 6.4 thou/uL (4.8-10.8)
[2017-02-16 06:17] LABS: BUN (Urea Nitrogen) 17 mg/dL (9.8-20.1); Calc. Creatinine Clearance 101 mL/min (70-130); Calcium 7.6 mg/dL (7.8-10.44); Estimated GFR-MDRD Greater than 90
[2017-02-16 06:26] LABS: Anion Gap 11 mmol/L (10-20); Carbon Dioxide 35 mmol/L (23-31); Chloride 94 mmol/L (98-107)
[2017-02-16] MEDS: Furosemide 40 MG TAB PO SCH (08:55)
[2017-02-16] MEDS: Metoprolol Tartrate 25 MG TAB PO SCH ×2 (08:55→20:46)
[2017-02-16] MEDS: Potassium Chloride 20 MEQ TAB PO SCH ×3 (08:56→12:52)
[2017-02-16] MEDS: Enoxaparin Sodium 40 MG/0.4 ML SYRINGE SC SCH (08:57)
[2017-02-16] MEDS: predniSONE 50 MG TAB PO SCH (08:57)
[2017-02-16] MEDS: FlunisoLIDE 0.025% Nasal Spray 25 ml Bottle EA NARE SCH (08:58)
[2017-02-16] MEDS: guaiFENesin ER 600 MG TAB PO SCH ×2 (08:58→21:04)
[2017-02-16] MEDS: Sucralfate 1 GM TAB PO SCH ×2 (08:59→20:46)
--- NOTE | 2017-02-16 12:05 | DIS ---
DATE OF ADMISSION: 02/11/2017 DATE OF DISCHARGE: 02/16/2017 PRIMARY CARE PROVIDER: Shital Méndez NP DISCHARGE DIAGNOSES: 1. Acute on chronic hypoxic respiratory failure. 2. Acute diastolic congestive heart failure. 3. Chronic obstructive pulmonary disease exacerbation. CONDITION OF PATIENT ON THE DAY OF DISCHARGE: Stable. I assessed Ms. Darling on the day of discharge . She denies any chest pain or shortness of breath. PHYSICAL EXAMINATION: VITAL SIGNS: Stable. HEART: S1 and S2 are heard, regular. LUNGS: Clear to auscultation bilaterally. DISCHARGE MEDICATIONS: Tylenol #3 one tablet every 8 hours as needed, ProAir HFA 2 puffs every 4 luz rs as needed, acetic acid otic solution 3-4 drops to right ear 3 times a day, Keflex 250 mg every 6 h ours for 3 more days, Flexeril 5 mg every 6 hours as needed, epinephrine p.r.n., Flonase allergy reli ef 1 spray to each naris 2 times a day, Lasix 40 mg daily, metoprolol 25 mg 2 times a day, Protonix 4 0 mg daily, K-Dur 10 mEq daily, prednisone 10 mg Dosepak and Carafate 1 gram 2 times a day. HOSPITAL COURSE: Ms. Darling is a pleasant 62-year-old lady, who was admitted to [facility] on 02/11/2017 for acute on chronic hypoxic respiratory failure secondary to acute diast olic failure as well as chronic obstructive pulmonary disease exacerbation. A 2D echocardiogram show ed a normal left ventricular function with an ejection fraction estimated at 55-60%. She had mild mi tral regurgitation and mild to moderate tricuspid regurgitation. She improved with oxygen, steroids, bronchodilators and antibiotics and diuretics. She is being discharged home in a stable condition. She refused home health, penitentiary unit evaluation and inpatient rehabilitation evaluation. She is advised to follow up with her primary care provider and have her creatinine and electrolytes c hecked. Many thanks for allowing me to participate in your patient's care. Please feel free to contact me wi th any questions or concerns. On the day of discharge, she has a white count 6400, hemoglobin 8.4 and platelet count 250. Sodium 1 37, potassium 3.2, which is being replaced, blood urea nitrogen 0.55. DISCHARGE DESTINATION: Home. TOTAL AMOUNT OF TIME SPENT COORDINATING THIS DISCHARGE: 33 minutes.
[2017-02-16] MEDS: Acetaminophen/Codeine 30-300mg Tablet PO PRN ×2 (12:54→20:51)
[2017-02-16] MEDS: Lorazepam 1 MG TAB PO PRN (20:53)
[2017-02-17] MEDS: Acetaminophen/Codeine 30-300mg Tablet PO PRN (03:38)
[2017-02-17] MEDS: Cephalexin 250 MG CAP PO SCH ×2 (03:39→08:49)
[2017-02-17 05:41] LABS: Anion Gap 8 mmol/L (10-20); BUN (Urea Nitrogen) 17 mg/dL (9.8-20.1); Calc. Creatinine Clearance 113 mL/min (70-130); Calcium 7.9 mg/dL (7.8-10.44); Carbon Dioxide 36 mmol/L (23-31); Chloride 97 mmol/L (98-107); Estimated GFR-MDRD Greater than 90
[2017-02-17] MEDS ORDERED: Potassium Chloride 20 MEQ TAB PO SCH (08:00)
[2017-02-17] MEDS: Lorazepam 1 MG TAB PO PRN (08:47)
[2017-02-17] MEDS: predniSONE 50 MG TAB PO SCH (08:47)
[2017-02-17] MEDS: Metoprolol Tartrate 25 MG TAB PO SCH (08:48)
[2017-02-17] MEDS: Furosemide 40 MG TAB PO SCH (08:48)
[2017-02-17] MEDS: Enoxaparin Sodium 40 MG/0.4 ML SYRINGE SC SCH (08:49)
[2017-02-17] MEDS: FlunisoLIDE 0.025% Nasal Spray 25 ml Bottle EA NARE SCH (08:49)
[2017-02-17] MEDS: guaiFENesin ER 600 MG TAB PO SCH (08:49)
[2017-02-17] MEDS: Sucralfate 1 GM TAB PO SCH (08:50)
[2017-02-17 11:03] VITALS: BP 126/74; TEMP 98.8
--- NOTE | 2017-02-17 13:37 | EKG ---
Test Reason : Blood Pressure : / mmHG Vent. Rate : 089 BPM Atrial Rate : 089 BPM P-R Int : 130 ms QRS Dur : 096 ms QT Int : 392 ms P-R-T Axes : 052 -32 050 degrees QTc Int : 476 ms Normal sinus rhythm Left axis deviation Nonspecific ST and T wave abnormality Prolonged QT Abnormal ECG Confirmed by ANNI BIRMINGHAM, MICKEY Ortega (17), magazine editor KANDI COLÓN ([id number]) on 02/17/2017 1:36:26 PM Referred By: Confirmed By:MICKEY HUTTON MD
== END 2017-02-17 10:20 | disposition home or self-care (01) | DRG 291 ==
LOC: ERS 15:03 → 2NO 17:35 → 3SE 02-13 14:19
PROVIDERS: ADMIT Internal Medicine; ATTEND Internal Medicine
DX: I11.0 Hypertensive heart disease with heart failure (principal); J96.21 Acute and chronic respiratory failure with hypoxia; J44.1 Chronic obstructive pulmonary disease with (acute) exacerbation; I50.33 Acute on chronic diastolic (congestive) heart failure; K21.9 Gastro-esophageal reflux disease without esophagitis; Z85.828 Personal history of other malignant neoplasm of skin; G89.29 Other chronic pain; M54.9 Dorsalgia, unspecified; Z88.1 Allergy status to other antibiotic agents; Z88.0 Allergy status to penicillin; Z88.7 Allergy status to serum and vaccine; Z88.8 Allergy status to other drugs, medicaments and biological substances; D50.9 Iron deficiency anemia, unspecified; M25.571 Pain in right ankle and joints of right foot
CPT/HCPCS: 36415; 80048; 82274; 85014; 85018; 85025; 93005; 93306; 93798; 93970; 94640; A4216; J1650; J1940; J7620

== ENCOUNTER 2017-04-21 21:40 | Inpatient (IN) | payer MEDICARE ==
--- NOTE | 2017-04-21 22:41 | ULT ---
LEFT LOWER EXTREMITY VENOUS DUPLEX EXAM: 04/21/17 HISTORY: Leg pain and edema. Real time color doppler evaluation of the left lower extremity was performed from groin to calf. This includes evaluation common femoral, superficial and profunda femoral, saphenous, popliteal and trifu rcation veins. This shows patent deep venous system with normal compressibility and augmentation. The re is no evidence of DVT. Extensive edema changes seen within the soft tissues suggesting cellulitis. IMPRESSION: No evidence of DVT. POS: RONNIE
[2017-04-21 23:37] LABS: #Lymphocytes 0.7 thou/uL (1.20-3.40); #Neutrophils 6.3 thou/uL (1.40-6.50); %Basophils 0.2 % (0.0-1.0); %Eosinophils 0.1 % (0.0-10.0); %Lymphocytes 9.5 % (21.0-51.0); %Monocytes 0.1 % (0.0-10.0); %Neutrophils 90.1 % (42.0-75.0); Hemoglobin 10.1 g/dL (12.0-16.0); Mean Corpuscular Hemoglobin 28.4 pg (27.0-31.0); Mean Corpuscular Volume 88.7 fl (81.0-99.0); Mean Platelet Volume 6.3 fL (7.4-10.4); Platelet Count 284 thou/uL (130-400); RBC Distribution Width 15.1 % (11.5-14.5); Red Blood Cell (RBC) Count 3.57 mill/uL (4.20-5.40)
[2017-04-21 23:59] LABS: ALT (SGPT) Less than 7 U/L (8-55); AST (SGOT) 18 U/L (5-34); Albumin 2.8 g/dL (3.4-4.8); Alkaline Phosphatase 114 U/L (40-150); Anion Gap 13 mmol/L (10-20); BUN (Urea Nitrogen) 11 mg/dL (9.8-20.1); Bilirubin, Total 0.3 mg/dL (0.2-1.2); Calc. Creatinine Clearance 0 mL/min (70-130); Calcium 8.4 mg/dL (7.8-10.44); Carbon Dioxide 27 mmol/L (23-31); Chloride 101 mmol/L (98-107); Estimated GFR-MDRD Greater than 90; Globulin 3.7 g/dL (2.4-3.5); Glucose 133 mg/dL (80-115); Potassium 3.4 mmol/L (3.5-5.1); Protein, Total 6.5 g/dL (6.0-8.3); Sodium 138 mmol/L (136-145)
[2017-04-22] MEDS ORDERED: predniSONE 20 MG TAB PO SCH (01:15)
[2017-04-22 01:23] VITALS: BMI 24.3
[2017-04-22] MEDS: Acetaminophen/Codeine 30-300mg Tablet PO PRN ×5 (01:42→22:24)
--- NOTE | 2017-04-22 04:40 | HP-2 ---
TIME AND DATE OF SERVICE: 23:45 on 04/21/2017. CODE STATUS: FULL CODE. PRIMARY CARE PHYSICIAN: Sandro soot. ATTENDING: Dr. Paez. RESIDENT: Caesar Sánchez MD HISTORIAN: The patient. CHIEF COMPLAINT: Shortness of breath and leg pain. HISTORY OF PRESENT ILLNESS: Irais Darling is a 62-year-old female with past medical history of hy pertension, CHF, and chronic obstructive pulmonary disease, who presents with a week long history of increased shortness of breath, cough, and increased sputum production. She has also got a 5-day hist ory of right leg swelling, redness, and pain since hitting her leg on a stair. She states that she h as had cellulitis off and on for the past month and she has taken Keflex which helped a little bit, b ut did not completely fix her leg. She states that she is on home O2 p.r.n. whenever she gets some s hortness of breath. In the ER, she received ceftriaxone. PAST MEDICAL HISTORY: 1. Hypertension. 2. Gastroesophageal reflux disease. 3. Chronic obstructive pulmonary disease. 4. Chronic diastolic congestive heart failure. 5. Chronic back pain. PAST SURGICAL HISTORY: 1. Partial hysterectomy. 2. Right shoulder and wrist surgery. 3. Skin cancer removal. 4. Left ankle surgery. ALLERGIES: 1. ERYTHROMYCIN BASE. 2. INFLUENZA VIRUS VACCINES. 3. KETOROLAC. 4. LEVOFLOXACIN. 5. METHYLPREDNISOLONE. 6. ZOFRAN. 7. PENICILLINS. 8. PHENOTHIAZINES. 9. PNEUMOCOCCAL VACCINE. 10. PROMETHAZINE. 11. QUINOLONES. 12. SULFA. 13. TIOTROPIUM BROMIDE. 14. ZOLPIDEM. 15. BLUE CHEESE. MEDICATIONS: 1. Acetaminophen/codeine 300mg/30 mg p.o. q.8 h. p.r.n. 2. Enalapril 40 mg p.o. b.i.d. 3. Sucralfate 1 gram p.o. b.i.d. 4. Pantoprazole 40 mg p.o. daily. 5. Flexeril 5 mg p.o. daily. 6. Metoprolol tartrate 25 mg p.o. daily. 7. Acetic acid 2% otic, 3-4 drops in right ear. 8. Epinephrine 1 mL subcutaneous p.r.n. 9. Flunisolide 25 mcg b.i.d. 10. Furosemide 40 mg p.o. daily. 11. Combivent 18 mcg/103 mcg 2 puffs INH p.r.n. 12. Fluticasone 1 spray b.i.d. REVIEW OF SYSTEMS: Twelve point review of systems including general, eyes, ENT, respiratory, CV, GI, , skin, musculoskeletal, neuro, and psych were all reviewed and were negative, unless otherwise st ated in HPI. Patient did also endorse 101 degree fever at home. PHYSICAL EXAMINATION: VITAL SIGNS: Blood pressure 167/101, pulse 98, respiratory rate 20, T-max 97.5, pulse ox 97% on 2 li ters. Current weight 62 kilograms. GENERAL: The patient is alert and oriented x4, no acute distress, well-developed, well-nourished, an d appropriately interactive. HEENT: Pupils equal, round, react to light and accommodation. Extraocular muscles intact. Conjunct ruddy within normal limits. ENT: Tympanic membranes pearly lewis without bulging or erythema. Nasal mucosa and oropharynx within normal limits. The patient had poor dentition. NECK: Supple, without lymphadenopathy or thyromegaly. CARDIOVASCULAR: Regular rate and rhythm. No murmurs or gallops. RESPIRATORY: Normal effort, no retractions. Diffuse wheezes present and decreased air movement bila terally. SKIN: Warm and dry. The patient's left lower extremity has erythema and warmth to distal left later al and anterior leg. ABDOMEN: Soft, nontender. Bowel sounds normoactive. No mass or distention. EXTREMITIES: No clubbing, cyanosis, 2+ nonpitting edema bilaterally. MUSCULOSKELETAL: Structure and tone within normal limits. Full range of motion. NEUROLOGIC: No focal deficits. Sensation within normal limits. PSYCHIATRIC: Appropriate. LABORATORY DATA: White blood cell count 7.0, hemoglobin 10.1, hematocrit 31.6, platelets 284. Sodiu m 139, potassium 4.1, chloride 100, bicarbonate 29, BUN 13, creatinine 0.51, glucose 77, calcium 8.4, total protein 6.5, albumin 2.7, total bilirubin 0.3, AST 19, ALT 7, alkaline phosphatase 113. ESR 5 2. D-dimer 2.16, INR 1.1, PT 14.1, PTT 57.2, CK 32, CK-MB 2.6, troponin I 0.014, BNP 86.7. Chest x- ray showed cardiomegaly, but no acute cardiopulmonary process. Pelvic x-ray showed no fractures. Va scular ultrasound showed no DVT. ASSESSMENT AND PLAN: A 62-year-old female with 1-week history of cough, sputum production, and 1-wee k history of leg pain, swelling, and redness: 1. Chronic obstructive pulmonary disease exacerbation. Admit to medical on home O2, baseline is 2 l iters p.r.n. Continue p.r.n. supplemental O2. Start prednisone 40 mg daily for 5 days, start doxycy chaparro secondary to medication allergies. Continue home inhalers. 2. Cellulitis of left lower extremity. Start doxycycline. Patient failed outpatient treatment with Keflex. Has allergies to several other antibiotics. 3. Gastroesophageal reflux disease. Continue home medications. 4. Hypertension. Continue home medications. 5. Deep venous thrombosis prophylaxis. The patient has history of gastrointestinal bleeding, so sta rt sequential compression devices. 6. Diet: Heart healthy. 7. Code status: FULL CODE. DISPOSITION AND LENGTH OF HOSPITAL STAY: 2 days. Symptomatic medication will be provided. History and physical exam as well as management were discussed with Dr. Paez.
[2017-04-22 04:48] LABS: #Lymphocytes 0.7 thou/uL (1.20-3.40); #Neutrophils 3.4 thou/uL (1.40-6.50); %Eosinophils 0.1 % (0.0-10.0); %Lymphocytes 17.1 % (21.0-51.0); %Monocytes 0.6 % (0.0-10.0); %Neutrophils 82.2 % (42.0-75.0); Hemoglobin 9.2 g/dL (12.0-16.0); Mean Corpuscular HGB CONC 31.8 g/dL (32.0-36.0); Mean Corpuscular Hemoglobin 28.4 pg (27.0-31.0); Mean Corpuscular Volume 89.3 fl (81.0-99.0); Mean Platelet Volume 6.7 fL (7.4-10.4); Platelet Count 278 thou/uL (130-400); RBC Distribution Width 15.2 % (11.5-14.5); Red Blood Cell (RBC) Count 3.24 mill/uL (4.20-5.40); White Blood Cell (WBC) Count 4.1 thou/uL (4.8-10.8)
[2017-04-22] MEDS ORDERED: Acetaminophen/Codeine 30-300mg Tablet PO PRN (06:38)
[2017-04-22] MEDS ORDERED: PROVENTIL INHALER 6.7 G (200 INHALATIONS) INH PRN (06:38)
[2017-04-22] MEDS: Furosemide 40 MG TAB PO SCH (08:35)
[2017-04-22] MEDS: predniSONE 20 MG TAB PO SCH (08:35)
[2017-04-22] MEDS: Potassium Chloride 10 MEQ TAB PO SCH (08:35)
[2017-04-22] MEDS: Metoprolol Tartrate 25 MG TAB PO SCH ×2 (08:36→21:36)
[2017-04-22] MEDS ORDERED: Doxycycline 100 MG CAP PO SCH ×2 (09:00→21:00)
[2017-04-22] MEDS ORDERED: ACETIC ACID R EAR SCH (09:00)
[2017-04-22] MEDS: Fluticasone Propionate Nasal Spray 16 gm Bottle NASAL SCH ×2 (10:00→21:36)
[2017-04-22] MEDS: Sucralfate 1 GM TAB PO SCH ×2 (10:00→21:36)
[2017-04-23] MEDS: Acetaminophen/Codeine 30-300mg Tablet PO PRN ×6 (02:22→23:27)
[2017-04-23 04:41] LABS: #Lymphocytes 1.5 thou/uL (1.20-3.40); #Monocytes 0.6 thou/uL (0.11-0.59); #Neutrophils 4.9 thou/uL (1.40-6.50); %Basophils 0.6 % (0.0-1.0); %Eosinophils 0.1 % (0.0-10.0); %Lymphocytes 21.3 % (21.0-51.0); %Monocytes 7.8 % (0.0-10.0); %Neutrophils 70.3 % (42.0-75.0); Hemoglobin 8.2 g/dL (12.0-16.0); Mean Corpuscular Hemoglobin 27.6 pg (27.0-31.0); Platelet Count 281 thou/uL (130-400); RBC Distribution Width 15.6 % (11.5-14.5); Red Blood Cell (RBC) Count 2.98 mill/uL (4.20-5.40)
[2017-04-23 05:08] LABS: ALT (SGPT) Less than 7 U/L (8-55); AST (SGOT) 10 U/L (5-34); Albumin 2.6 g/dL (3.4-4.8); Alkaline Phosphatase 85 U/L (40-150); Anion Gap 5 mmol/L (10-20); BUN (Urea Nitrogen) 17 mg/dL (9.8-20.1); Bilirubin, Total 0.2 mg/dL (0.2-1.2); Calc. Creatinine Clearance 91 mL/min (70-130); Calcium 8.3 mg/dL (7.8-10.44); Carbon Dioxide 35 mmol/L (23-31); Chloride 103 mmol/L (98-107); Estimated GFR-MDRD Greater than 90; Globulin 3.2 g/dL (2.4-3.5); Glucose 127 mg/dL (80-115); Potassium 3.5 mmol/L (3.5-5.1); Protein, Total 5.8 g/dL (6.0-8.3); Sodium 139 mmol/L (136-145)
--- NOTE | 2017-04-23 06:43 | PDOC.FM ---
- Subjective Subjective: Denies feeling short of breath this am. No acute events overnight. States her swelling in her leg started after she fell and hurt her left hip. Says she got an xray done at the prior hospital before transferred here and they told her she pulled a muscle. This injury happened about a week ago. States the redness in her lower extremity started a few months ago. Has many allergies, but says she has had rocephin before. - Objective MAR Reviewed: Yes Vital Signs & Weight: Vital Signs (12 hours) Temp Pulse Resp BP Pulse Ox 04/23/17 06:34 95 18 97 04/23/17 04:27 98.4 F 99 14 136/77 97 04/23/17 01:43 99 12 96 04/23/17 00:45 98.3 F 99 20 156/83 H 96 04/22/17 23:24 112 H 16 04/22/17 20:00 97.7 F 112 H 20 153/78 H 96 04/22/17 18:42 104 H 16 94 L Weight Weight 62.369 kg I&O: 04/21/17 04/22/17 04/23/17 06:59 06:59 06:59 Intake Total 480 Balance 480 Result Diagrams: 04/23/17 03:56 04/23/17 03:56 <Malena Torres - Last Filed: 04/23/17 09:01> - Objective Vital Signs & Weight: Vital Signs (12 hours) Temp Pulse Resp BP Pulse Ox 04/23/17 11:37 90 16 99 04/23/17 08:00 97.6 F 90 16 172/82 H 97 04/23/17 06:34 95 18 97 04/23/17 04:27 98.4 F 99 14 136/77 97 04/23/17 01:43 99 12 96 04/23/17 00:45 98.3 F 99 20 156/83 H 96 Weight Weight 62.369 kg I&O: 04/22/17 04/23/17 04/24/17 06:59 06:59 06:59 Intake Total 480 Balance 480 Result Diagrams: 04/23/17 03:56 04/23/17 03:56 <Stef Khan - Last Filed: 04/23/17 12:42> Phys Exam - Physical Examination Constitutional: NAD HEENT: PERRLA dry MM Neck: no JVD wheezing bilaterally and decreased air movement bilaterally Cardiovascular: RRR, no significant murmur Gastrointestinal: soft, non-tender edema of left lower extremity with diffuse erythema to knee combination of pitting and nonpitting edema Neurological: non-focal Psychiatric: normal affect, A&O x 3 Deviation from normal: cap refill>2sec <Malena Torres - Last Filed: 04/23/17 09:01> Dx/Plan (1) Left leg cellulitis Code(s): L03.116 - CELLULITIS OF LEFT LOWER LIMB Status: Acute (2) COPD with exacerbation Code(s): J44.1 - CHRONIC OBSTRUCTIVE PULMONARY DISEASE W (ACUTE) EXACERBATION Status: Acute (3) GERD (gastroesophageal reflux disease) Code(s): K21.9 - GASTRO-ESOPHAGEAL REFLUX DISEASE WITHOUT ESOPHAGITIS Status: Acute - Plan Plan: COPD exacerbation, controlled on prednisone 40mg daily, duonebs scheduled q4h, albuterol prn. Pt has a lot of allergies documented. She initially was started on doxycycline, which was dc'd yesterday. Plan to start rocephin today for both her COPD exacerbation and LLE cellulitis Left Lower Extremity Cellulitis-Pt has many documented allergies. Initially was started on doxycycline yesterday, which was discontinued. It appears that she has taken vanc and rocephin the past. Will start rocephin as she says she was given that in the ER yesterday and did not have any side effects. GERD-protonix <Malena Torres - Last Filed: 04/23/17 09:01> Attending Addendum - Attending Addendum I personally evaluated the patient and discussed the management with Dr. Mick Munoz. I agree with the History, Examination, Assessment and Plan documented above with any addition or exceptions noted below. Patient admitted for hypoxic respiratory failure 2/2 obstructive airway disease. Patient refutes smoking history, therefore she may not have COPD. This may represent severe untreated asthma. Neb treatments, PO steroids have been started, and we will add ICS/LABA combo for better control. She feels improved and respiratory status is stable, but continues to have significant exp wheezes. Her Bicarb has increased this morning, and I would have some mild concern for CO2 retention. If respiratory status changes at all, or if she becomes altered or somnolent, will need stat ABG. Mild cellulitis of the LE, will continue Rocephin as patient has a host of allergies to abx. <Stef Khan R - Last Filed: 04/23/17 12:42>
[2017-04-23] MEDS: Potassium Chloride 10 MEQ TAB PO SCH (08:06)
[2017-04-23] MEDS: Sucralfate 1 GM TAB PO SCH ×2 (08:06→21:32)
[2017-04-23] MEDS: predniSONE 20 MG TAB PO SCH (08:06)
[2017-04-23] MEDS: Fluticasone Propionate Nasal Spray 16 gm Bottle NASAL SCH ×2 (08:06→21:31)
[2017-04-23] MEDS: Furosemide 40 MG TAB PO SCH (08:06)
[2017-04-23] MEDS: Metoprolol Tartrate 25 MG TAB PO SCH ×2 (08:07→21:31)
[2017-04-23] MEDS ORDERED: cefTRIAXone\\ROCEPHIN 1 GM in Sodium Chloride 0.9% 100 ML IVPB SCH (09:15)
[2017-04-23] MEDS: cefTRIAXone\\ROCEPHIN 1 GM, Syringe 0.4 ML in Sterile Water 9.6 ML SLOW IVP SCH (10:37)
--- NOTE | 2017-04-23 13:19 | CON ---
DATE OF CONSULTATION: 04/23/2017 REASON FOR CONSULTATION: Cellulitis, left leg. HISTORY OF PRESENT ILLNESS: A 62-year-old who has a history of hypertension, COPD with asthma, and d iastolic CHF, who has also chronic lymphedema of lower extremities. The patient has noticed what she describes as redness and swelling of the lower extremity left side for the past month for which he t ook Keflex with some improvement, but then recrudescence. She came to the ER and was admitted. She also had some dyspnea and required O2 supplementation. Currently, she is awake and alert, minimal pa in left leg. The ocular movements are conjugate. Oral cavity normal. No dental pain. No back pain . Mild dyspnea. No chest pain, no sputum production, no abdominal pain, no genitourinary symptoms, no joint symptoms. PAST MEDICAL HISTORY: Hypertension, gastroesophageal reflux disease, COPD, diastolic CHF, back pain. Lymphedema is not listed here, but she obviously has evidence of chronic lymphedema and venous insu fficiency in both lower extremities. PAST SURGICAL HISTORY: Partial hysterectomy, right shoulder surgery, wrist surgery, skin cancer nicholas oscar, and left ankle surgery. ALLERGIES: ERYTHROMYCIN, INFLUENZA VACCINE, KETOROLAC, LEVOFLOXACIN, PREDNISONE, PENICILLIN, PROMETH AZINE, SULFA DRUGS, AMBIEN. MEDICATIONS: At home are enalapril, acetaminophen, sucralfate, pantoprazole, Flexeril, metoprolol, a cetic acid, furosemide, Combivent, fluticasone. FAMILY HISTORY: Noncontributory. SOCIAL HISTORY: Never a smoker. PHYSICAL EXAMINATION: VITAL SIGNS: T-max 98.4, blood pressure 170/80, pulse 90, respirations 16, O2 sat 97% on 2 liters na hamilton cannula. GENERAL: Appears in no distress. Awake, alert, and oriented. A little bit tachypneic, little bit o f wheezing expiratory in right and left hemithoraces. HEART: S1 and S2, regular rate. ABDOMEN: Soft, not distended. EXTREMITIES: Bilateral lymphedema of lower extremities with venous insufficiency. [place] colored er ythema left leg, mild tenderness. Erythema extends from the area below the knee all the way to the f oot in a circumferential distribution. No blistering is noted. Pulses are diminished in dorsalis pe dis, but she has quite a bit of lymphedema, so that makes it hard to evaluate pulses. She is able to move extremities. LABORATORY DATA: White cell count 7.0 and now 7.0, hemoglobin 10, MCV 88, platelets 284, 90% neutrop hils which has decreased to 70% neutrophils. The chemistry with creatinine 0.5, glucose 133, albumin 2.8. A vascular ultrasound before yesterday with no evidence of deep vein thrombosis. ASSESSMENT: Chronic lymphedema of lower extremities, chronic obstructive pulmonary disease associate d with asthma, but no smoking history and now with possible cellulitis. She has very mild changes an d this could represent just stasis dermatitis, but I believe it is worthwhile to continue treatment w ith Rocephin alone since beta-hemolytic streptococcus will be the most likely culprit in this patient 's inflammatory process. After that, transition to oral Keflex and secondary prophylaxis with penici llin V for 1 year. The patient would benefit from wearing compression device such as stockings or wr ap.
[2017-04-24] MEDS: Acetaminophen/Codeine 30-300mg Tablet PO PRN ×5 (03:29→22:02)
[2017-04-24 04:58] LABS: #Lymphocytes 1.7 thou/uL (1.20-3.40); #Monocytes 0.4 thou/uL (0.11-0.59); #Neutrophils 3.7 thou/uL (1.40-6.50); %Basophils 0.2 % (0.0-1.0); %Eosinophils 0.4 % (0.0-10.0); %Lymphocytes 28.7 % (21.0-51.0); %Monocytes 7.6 % (0.0-10.0); Hemoglobin 8.2 g/dL (12.0-16.0); Mean Corpuscular Hemoglobin 27.9 pg (27.0-31.0); Mean Corpuscular Volume 90.2 fl (81.0-99.0); Mean Platelet Volume 6.7 fL (7.4-10.4); Platelet Count 233 thou/uL (130-400); RBC Distribution Width 15.4 % (11.5-14.5); Red Blood Cell (RBC) Count 2.92 mill/uL (4.20-5.40); White Blood Cell (WBC) Count 5.8 thou/uL (4.8-10.8)
[2017-04-24 05:13] LABS: ALT (SGPT) Less than 7 U/L (8-55); AST (SGOT) 9 U/L (5-34); Albumin 2.7 g/dL (3.4-4.8); Alkaline Phosphatase 81 U/L (40-150); Anion Gap 8 mmol/L (10-20); BUN (Urea Nitrogen) 18 mg/dL (9.8-20.1); Bilirubin, Total 0.2 mg/dL (0.2-1.2); Calc. Creatinine Clearance 109 mL/min (70-130); Calcium 8.1 mg/dL (7.8-10.44); Carbon Dioxide 33 mmol/L (23-31); Chloride 101 mmol/L (98-107); Estimated GFR-MDRD Greater than 90; Globulin 2.9 g/dL (2.4-3.5); Glucose 93 mg/dL (80-115); Potassium 3.4 mmol/L (3.5-5.1); Protein, Total 5.6 g/dL (6.0-8.3); Sodium 139 mmol/L (136-145)
--- NOTE | 2017-04-24 06:57 | PDOC.FM ---
- Subjective Subjective: No acute events overnight. Complaining of midepigastric and left upper quadrant abdominal pain. Also states she lost 10-15 pounds over the past year. Says she has a hx of GI ulcers. Had an EGD done in 2012. Also states that her abdominal hernia has been more painful, but is still reducible. - Objective MAR Reviewed: Yes Vital Signs & Weight: Vital Signs (12 hours) Temp Pulse Resp BP Pulse Ox 04/24/17 06:05 94 16 97 04/24/17 05:13 98.2 F 94 18 145/74 H 98 04/24/17 03:03 96 18 98 04/24/17 00:54 98.4 F 96 18 157/77 H 98 04/23/17 23:22 92 18 97 04/23/17 21:47 98.2 F 96 18 161/92 H 100 04/23/17 20:00 98.2 F 96 18 100 04/23/17 19:33 100 20 98 Weight Weight 62.369 kg I&O: 04/22/17 04/23/17 04/24/17 06:59 06:59 06:59 Intake Total 480 480 Balance 480 480 Result Diagrams: 04/24/17 04:40 04/24/17 04:40 <Malena Torres - Last Filed: 04/24/17 09:23> - Objective Vital Signs & Weight: Vital Signs (12 hours) Temp Pulse Resp BP Pulse Ox 04/24/17 09:41 100 20 97 04/24/17 08:05 98.0 F 100 12 136/76 99 04/24/17 06:05 94 16 97 04/24/17 05:13 98.2 F 94 18 145/74 H 98 04/24/17 03:03 96 18 98 04/24/17 00:54 98.4 F 96 18 157/77 H 98 Weight Weight 62.369 kg I&O: 04/23/17 04/24/17 04/25/17 06:59 06:59 06:59 Intake Total 480 480 Balance 480 480 Result Diagrams: 04/24/17 04:40 04/24/17 04:40 <Stef Khan - Last Filed: 04/24/17 12:06> Phys Exam - Physical Examination Constitutional: NAD HEENT: PERRLA, moist MMs Neck: no JVD wheezing bilaterally and decreased breath sounds bilaterally Cardiovascular: RRR Gastrointestinal: soft umbilical hernia, reducible edema of right lower extremity, erythema of right lower extremity Neurological: non-focal, normal sensation Psychiatric: normal affect, A&O x 3 <Malena Torres - Last Filed: 04/24/17 09:23> Dx/Plan (1) Left leg cellulitis Code(s): L03.116 - CELLULITIS OF LEFT LOWER LIMB Status: Acute (2) COPD with exacerbation Code(s): J44.1 - CHRONIC OBSTRUCTIVE PULMONARY DISEASE W (ACUTE) EXACERBATION Status: Acute (3) GERD (gastroesophageal reflux disease) Code(s): K21.9 - GASTRO-ESOPHAGEAL REFLUX DISEASE WITHOUT ESOPHAGITIS Status: Acute (4) Chronic acquired lymphedema Code(s): I89.0 - LYMPHEDEMA, NOT ELSEWHERE CLASSIFIED Status: Acute (5) Stasis dermatitis Code(s): I87.2 - VENOUS INSUFFICIENCY (CHRONIC) (PERIPHERAL) Status: Acute (6) PUD (peptic ulcer disease) Code(s): K27.9 - PEPTIC ULC, SITE UNSP, UNSP AC OR CHR, W/O HEMOR OR PERF Status: Acute (7) Umbilical hernia Code(s): K42.9 - UMBILICAL HERNIA WITHOUT OBSTRUCTION OR GANGRENE Status: Acute (8) HTN (hypertension) Code(s): I10 - ESSENTIAL (PRIMARY) HYPERTENSION Status: Acute (9) Normocytic anemia Code(s): D64.9 - ANEMIA, UNSPECIFIED Status: Acute - Plan Plan: 62 yo f with COPD admitted for COPD exacerbation and left lower extremity cellulitis vs stasis dermatitis and lymphedema. COPD exacerbation, uncontrolled. Currently on prednisone 40mg daily, duonebs scheduled q4h, albuterol prn. Pt has a lot of allergies documented. She initially was started on doxycycline, which was dc'd yesterday. Plan to start rocephin today for both her COPD exacerbation and LLE cellulitis. Will schedule a continous 10ml duoneb treatment as pt is persistently wheezing and having decreased air movement. States she is allergic to most combined ICS/LABA inhalers. Can't take advair, symbicort, dulera. Will try pulmacort through her nebulizer. Left Lower Extremity Cellulitis vs stasis dermatitis and lymphedema-Pt has many documented allergies. Will continue rocephin as she says she was given that in the ER yesterday and did not have any side effects. Will switch to keflex upon discharge for a total of 10 days. Appreciate recs from Dr. Cruz. Hx of PUD-continue protonix. Will order an FOBT and H.pylori. She had an EGD in 2012. Consider EGD. Abdominal Hernia-reducible but painful. Recommend outpatient follow-up GERD-protonix Anemia-Will order b12/folate/iron studies. She has a downtrending H/H to 8.2/ 26.5 HTN-uncontrolled. Will increase enalapril. <Malena Torres - Last Filed: 04/24/17 09:23> Attending Addendum - Attending Addendum I personally evaluated the patient and discussed the management with Dr. Mick Munoz. I agree with the History, Examination, Assessment and Plan documented above with any addition or exceptions noted below. Patient with subjective improvement, but continues to have diminished air entry b/l along with expiratory wheezes, some better today. She is very resistant to begin new medications. We will add Pulmicort to her neb regimen today. Continue steroids. Her bicarb is down somewhat so less concern about severe CO2 retention. Continue to wean O2 as tolerated. Continue Rocephin IV for mild LLE cellulitis. <Stef Khan - Last Filed: 04/24/17 12:06>
[2017-04-24 07:32] LABS: Iron 41 ug/dL (50-170); Iron Binding Capacity, Total 211 mcg/dL (265-497)
[2017-04-24 08:22] LABS: Folate (Folic Acid) 3.4 ng/mL (7.0-31.4)
[2017-04-24] MEDS: predniSONE 20 MG TAB PO SCH (08:23)
[2017-04-24] MEDS: Furosemide 40 MG TAB PO SCH (08:24)
[2017-04-24] MEDS: Metoprolol Tartrate 25 MG TAB PO SCH ×2 (08:25→20:23)
[2017-04-24] MEDS: Potassium Chloride 10 MEQ TAB PO SCH (08:25)
[2017-04-24] MEDS: Cyclobenzaprine 10 MG TAB PO PRN ×3 (08:34→20:54)
[2017-04-24] MEDS: cefTRIAXone\\ROCEPHIN 1 GM, Syringe 0.4 ML in Sterile Water 9.6 ML SLOW IVP SCH (08:34)
[2017-04-24] MEDS: Sucralfate 1 GM TAB PO SCH ×2 (08:35→20:23)
[2017-04-24] MEDS: Fluticasone Propionate Nasal Spray 16 gm Bottle NASAL SCH ×2 (09:06→20:23)
[2017-04-24] MEDS ORDERED: Budesonide 0.5 MG/2 ML NEB INH SCH (14:45)
[2017-04-24] MEDS: Budesonide 0.5 MG/2 ML NEB INH SCH (19:17)
[2017-04-24] MEDS: Montelukast Sodium 10 mg Tablet PO SCH (20:26)
[2017-04-25] MEDS: Acetaminophen/Codeine 30-300mg Tablet PO PRN ×5 (01:58→20:50)
[2017-04-25] MEDS: Cyclobenzaprine 10 MG TAB PO PRN ×4 (03:03→21:51)
[2017-04-25 05:56] LABS: #Lymphocytes 1.6 thou/uL (1.20-3.40); #Monocytes 0.6 thou/uL (0.11-0.59); #Neutrophils 2.7 thou/uL (1.40-6.50); %Basophils 0.6 % (0.0-1.0); %Eosinophils 0.5 % (0.0-10.0); %Lymphocytes 32.9 % (21.0-51.0); %Monocytes 11.3 % (0.0-10.0); %Neutrophils 54.6 % (42.0-75.0); Hemoglobin 8.3 g/dL (12.0-16.0); Mean Corpuscular HGB CONC 31.4 g/dL (32.0-36.0); Mean Corpuscular Hemoglobin 28.4 pg (27.0-31.0); Mean Corpuscular Volume 90.4 fl (81.0-99.0); Mean Platelet Volume 6.7 fL (7.4-10.4); Platelet Count 201 thou/uL (130-400); RBC Distribution Width 15.4 % (11.5-14.5); Red Blood Cell (RBC) Count 2.91 mill/uL (4.20-5.40)
[2017-04-25] MEDS: Budesonide 0.5 MG/2 ML NEB INH SCH ×2 (06:02→19:21)
[2017-04-25 06:19] LABS: ALT (SGPT) Less than 7 U/L (8-55); AST (SGOT) 8 U/L (5-34); Albumin 2.6 g/dL (3.4-4.8); Alkaline Phosphatase 84 U/L (40-150); Anion Gap 9 mmol/L (10-20); BUN (Urea Nitrogen) 15 mg/dL (9.8-20.1); Bilirubin, Total 0.2 mg/dL (0.2-1.2); Calc. Creatinine Clearance 109 mL/min (70-130); Calcium 7.8 mg/dL (7.8-10.44); Carbon Dioxide 35 mmol/L (23-31); Chloride 100 mmol/L (98-107); Estimated GFR-MDRD Greater than 90; Glucose 94 mg/dL (80-115); Potassium 3.5 mmol/L (3.5-5.1); Protein, Total 5.6 g/dL (6.0-8.3); Sodium 140 mmol/L (136-145)
--- NOTE | 2017-04-25 06:47 | PDOC.FM ---
- Subjective Subjective: No acute events overnight. Pt denies feeling short of breath. She is complaining of left hip pain which she says is from a fall she had over a week ago. She states she got xrays done and did not have a fracture. She says the muscle relaxer is helping with the pain that seems to be coming from a muscle strain in her upper thigh. - Objective MAR Reviewed: Yes Vital Signs & Weight: Vital Signs (12 hours) Temp Pulse Resp BP Pulse Ox 04/25/17 09:30 91 16 96 04/25/17 07:21 97.8 F 91 20 162/80 H 98 04/25/17 06:02 83 14 97 04/25/17 04:55 98.1 F 85 17 135/73 96 04/25/17 02:05 98 12 04/25/17 00:26 98.3 F 82 16 129/73 98 Weight Weight 62.369 kg I&O: 04/24/17 04/25/17 04/26/17 06:59 06:59 06:59 Intake Total 480 Balance 480 Result Diagrams: 04/25/17 05:26 04/25/17 05:26 <Luis Godoy - Last Filed: 04/25/17 11:23> - Subjective Subjective: No acute events overnight. Pt denies feeling short of breath. She is complaining of left hip pain which she says is from a fall she had over a week ago. She states she got xrays done and did not have a fracture. She says the muscle relaxer is helping with the pain that seems to be coming from a muscle strain in her upper thigh - Objective Vital Signs & Weight: Vital Signs (12 hours) Temp Pulse Resp BP Pulse Ox 04/25/17 06:02 83 14 97 04/25/17 04:55 98.1 F 85 17 135/73 96 04/25/17 02:05 98 12 04/25/17 00:26 98.3 F 82 16 129/73 98 04/24/17 22:10 95 12 97 04/24/17 20:59 98.2 F 94 15 127/73 96 04/24/17 20:00 98.2 F 94 15 96 04/24/17 19:13 84 12 Weight Weight 62.369 kg I&O: 04/23/17 04/24/17 04/25/17 06:59 06:59 06:59 Intake Total 480 480 Balance 480 480 Result Diagrams: 04/25/17 05:26 04/25/17 05:26 <Malena Torres - Last Filed: 04/25/17 11:28> - Objective Vital Signs & Weight: Vital Signs (12 hours) Temp Pulse Resp BP Pulse Ox 04/25/17 12:25 97.4 F L 76 16 122/75 98 04/25/17 09:30 91 16 96 04/25/17 08:00 97.8 F 91 20 98 04/25/17 07:21 97.8 F 91 20 162/80 H 98 04/25/17 06:02 83 14 97 04/25/17 04:55 98.1 F 85 17 135/73 96 04/25/17 02:05 98 12 Weight Weight 62.369 kg I&O: 04/24/17 04/25/17 04/26/17 06:59 06:59 06:59 Intake Total 480 Balance 480 Result Diagrams: 04/25/17 05:26 04/25/17 05:26 <Stef Khan - Last Filed: 04/25/17 12:59> Phys Exam - Physical Examination Constitutional: NAD HEENT: PERRLA, moist MMs Respiratory: wheezing present (bilaterally) air movement improved from yesterday Cardiovascular: RRR, no significant murmur Gastrointestinal: soft, non-tender abdominal hernia, reducible mild erythema and edema of right lower extremity Neurological: non-focal Psychiatric: normal affect, A&O x 3 <Luis Godoy - Last Filed: 04/25/17 11:23> - Physical Examination Constitutional: NAD HEENT: PERRLA, moist MMs Respiratory: wheezing present Cardiovascular: RRR, no significant murmur Gastrointestinal: soft, non-tender Neurological: non-focal <Malena Torres - Last Filed: 04/25/17 11:28> Dx/Plan (1) Left leg cellulitis Code(s): L03.116 - CELLULITIS OF LEFT LOWER LIMB Status: Acute (2) COPD with exacerbation Code(s): J44.1 - CHRONIC OBSTRUCTIVE PULMONARY DISEASE W (ACUTE) EXACERBATION Status: Acute (3) GERD (gastroesophageal reflux disease) Code(s): K21.9 - GASTRO-ESOPHAGEAL REFLUX DISEASE WITHOUT ESOPHAGITIS Status: Acute (4) Chronic acquired lymphedema Code(s): I89.0 - LYMPHEDEMA, NOT ELSEWHERE CLASSIFIED Status: Acute (5) Stasis dermatitis Code(s): I87.2 - VENOUS INSUFFICIENCY (CHRONIC) (PERIPHERAL) Status: Acute (6) PUD (peptic ulcer disease) Code(s): K27.9 - PEPTIC ULC, SITE UNSP, UNSP AC OR CHR, W/O HEMOR OR PERF Status: Acute (7) Umbilical hernia Code(s): K42.9 - UMBILICAL HERNIA WITHOUT OBSTRUCTION OR GANGRENE Status: Acute (8) HTN (hypertension) Code(s): I10 - ESSENTIAL (PRIMARY) HYPERTENSION Status: Acute (9) Normocytic anemia Code(s): D64.9 - ANEMIA, UNSPECIFIED Status: Acute - Plan Plan: 2 yo f with COPD admitted for COPD exacerbation and left lower extremity cellulitis vs stasis dermatitis and lymphedema. COPD exacerbation, improved. -Currently on prednisone 40mg daily, duonebs scheduled q4h, albuterol prn. Pt has a lot of allergies documented. Continue pulmacort through nebulizer. Wean O2 as tolerated. Transition to keflex upon discharge. Left Lower Extremity Cellulitis vs stasis dermatitis and lymphedema-Pt has many documented allergies. Will switch to keflex upon discharge for a total of 10 days. Appreciate recs from Dr. Cruz. Hx of PUD-continue protonix. Will order an FOBT and H.pylori. She had an EGD in 2012. Consider EGD outpatient if worsening sx. Abdominal Hernia-reducible but painful. Recommend outpatient follow-up. GERD-protonix Anemia, mixed- will start the patient on iron and folate. HTN-uncontrolled. Pt states she was allergic to enalapril. Will continue metoprolol at this time. Consider increasing dose if difficulty with bp control. Dispo-Anticipate discharge today. <Malena Torres - Last Filed: 04/25/17 11:28> Attending Addendum - Attending Addendum I personally evaluated the patient and discussed the management with Dr. Mick Munoz. I agree with the History, Examination, Assessment and Plan documented above with any addition or exceptions noted below. Patient improved. Her lungs sound better today with addition of Pulmicort therapy. She likely has severe asthma that has previously been undertreated. O2 at baseline requirement. Monitor through today and anticipate discharge tomorrow. She remains on Rocephin for mild cellulitis. <Stef Khan - Last Filed: 04/25/17 12:59>
[2017-04-25] MEDS: Fluticasone Propionate Nasal Spray 16 gm Bottle NASAL SCH ×2 (08:33→20:45)
[2017-04-25] MEDS: Metoprolol Tartrate 25 MG TAB PO SCH ×2 (08:34→20:47)
[2017-04-25] MEDS: Ferrous Sulfate 325 MG TAB PO SCH ×2 (08:35→16:15)
[2017-04-25] MEDS: Potassium Chloride 10 MEQ TAB PO SCH (08:35)
[2017-04-25] MEDS: predniSONE 20 MG TAB PO SCH (08:35)
[2017-04-25] MEDS: Sucralfate 1 GM TAB PO SCH ×2 (08:35→20:47)
[2017-04-25] MEDS: Furosemide 40 MG TAB PO SCH (08:35)
[2017-04-25] MEDS: Folic Acid/Vit B Comp W-C PO SCH (08:35)
[2017-04-25] MEDS: cefTRIAXone\\ROCEPHIN 1 GM, Syringe 0.4 ML in Sterile Water 9.6 ML SLOW IVP SCH (08:38)
[2017-04-25] MEDS: Montelukast Sodium 10 mg Tablet PO SCH ×2 (20:47→20:53)
[2017-04-26] MEDS: Acetaminophen/Codeine 30-300mg Tablet PO PRN ×4 (02:05→14:25)
[2017-04-26] MEDS: Cyclobenzaprine 10 MG TAB PO PRN ×3 (04:11→15:37)
[2017-04-26 06:12] LABS: #Lymphocytes 1.6 thou/uL (1.20-3.40); #Monocytes 0.6 thou/uL (0.11-0.59); #Neutrophils 3.2 thou/uL (1.40-6.50); %Basophils 0.5 % (0.0-1.0); %Eosinophils 0.5 % (0.0-10.0); %Lymphocytes 28.9 % (21.0-51.0); %Monocytes 10.4 % (0.0-10.0); %Neutrophils 59.7 % (42.0-75.0); Hemoglobin 8.6 g/dL (12.0-16.0); Mean Corpuscular HGB CONC 30.6 g/dL (32.0-36.0); Mean Corpuscular Hemoglobin 27.4 pg (27.0-31.0); Mean Corpuscular Volume 89.5 fl (81.0-99.0); Mean Platelet Volume 7.3 fL (7.4-10.4); Platelet Count 212 thou/uL (130-400); RBC Distribution Width 15.3 % (11.5-14.5); Red Blood Cell (RBC) Count 3.13 mill/uL (4.20-5.40); White Blood Cell (WBC) Count 5.4 thou/uL (4.8-10.8)
[2017-04-26 06:31] LABS: ALT (SGPT) Less than 7 U/L (8-55); AST (SGOT) 10 U/L (5-34); Albumin 2.7 g/dL (3.4-4.8); Alkaline Phosphatase 85 U/L (40-150); Anion Gap 8 mmol/L (10-20); BUN (Urea Nitrogen) 15 mg/dL (9.8-20.1); Bilirubin, Total 0.3 mg/dL (0.2-1.2); Calc. Creatinine Clearance 105 mL/min (70-130); Calcium 7.9 mg/dL (7.8-10.44); Carbon Dioxide 35 mmol/L (23-31); Chloride 100 mmol/L (98-107); Estimated GFR-MDRD Greater than 90; Glucose 77 mg/dL (80-115); Potassium 3.5 mmol/L (3.5-5.1); Protein, Total 5.7 g/dL (6.0-8.3); Sodium 139 mmol/L (136-145)
--- NOTE | 2017-04-26 06:51 | PDOC.FM ---
- Subjective Subjective: Complaining of her abdominal hernia hurting. It is reducible. Discussed scheduling an apt with a general surgeon outpatient. Otherwise no complaints. - Objective MAR Reviewed: Yes Vital Signs & Weight: Vital Signs (12 hours) Temp Pulse Resp BP Pulse Ox 04/26/17 04:37 98.0 F 78 15 148/75 H 9 L 04/26/17 00:55 98.0 F 78 16 136/72 97 04/26/17 00:05 97 04/25/17 21:38 97.7 F 89 16 137/76 97 04/25/17 20:00 97.7 F 89 16 97 Weight Weight 62.369 kg I&O: 04/24/17 04/25/17 04/26/17 06:59 06:59 06:59 Intake Total 480 1240 Balance 480 1240 Result Diagrams: 04/26/17 05:31 04/26/17 05:31 <Malena Torres - Last Filed: 04/26/17 09:17> - Objective Vital Signs & Weight: Vital Signs (12 hours) Temp Pulse Resp BP Pulse Ox 04/26/17 10:58 96 16 04/26/17 08:29 98.2 F 96 16 151/72 H 98 04/26/17 04:37 98.0 F 78 15 148/75 H 9 L 04/26/17 00:55 98.0 F 78 16 136/72 97 04/26/17 00:05 97 Weight Weight 62.369 kg I&O: 04/25/17 04/26/17 04/27/17 06:59 06:59 06:59 Intake Total 1640 Balance 1640 Result Diagrams: 04/26/17 05:31 04/26/17 05:31 <Stef hKan - Last Filed: 04/26/17 11:55> Phys Exam - Physical Examination Constitutional: NAD HEENT: PERRLA Neck: no JVD mild expiratory wheezes bilaterally Cardiovascular: RRR, no significant murmur Gastrointestinal: soft, non-tender Musculoskeletal: no edema Psychiatric: normal affect, A&O x 3 Deviation from normal: erythema and swelling of left lower extremity <Malena Torres - Last Filed: 04/26/17 09:17> Dx/Plan (1) Left leg cellulitis Code(s): L03.116 - CELLULITIS OF LEFT LOWER LIMB Status: Acute (2) COPD with exacerbation Code(s): J44.1 - CHRONIC OBSTRUCTIVE PULMONARY DISEASE W (ACUTE) EXACERBATION Status: Acute (3) GERD (gastroesophageal reflux disease) Code(s): K21.9 - GASTRO-ESOPHAGEAL REFLUX DISEASE WITHOUT ESOPHAGITIS Status: Acute (4) Chronic acquired lymphedema Code(s): I89.0 - LYMPHEDEMA, NOT ELSEWHERE CLASSIFIED Status: Acute (5) Stasis dermatitis Code(s): I87.2 - VENOUS INSUFFICIENCY (CHRONIC) (PERIPHERAL) Status: Acute (6) PUD (peptic ulcer disease) Code(s): K27.9 - PEPTIC ULC, SITE UNSP, UNSP AC OR CHR, W/O HEMOR OR PERF Status: Acute (7) Umbilical hernia Code(s): K42.9 - UMBILICAL HERNIA WITHOUT OBSTRUCTION OR GANGRENE Status: Acute (8) HTN (hypertension) Code(s): I10 - ESSENTIAL (PRIMARY) HYPERTENSION Status: Acute (9) Normocytic anemia Code(s): D64.9 - ANEMIA, UNSPECIFIED Status: Acute - Plan Plan: 2 yo f with COPD admitted for COPD exacerbation and left lower extremity cellulitis vs stasis dermatitis and lymphedema. COPD exacerbation, improved. -Currently on prednisone 40mg daily, duonebs scheduled q4h, albuterol prn. Pt has a lot of allergies documented. Continue pulmacort through nebulizer. Wean O2 as tolerated. Transition to keflex today. Left Lower Extremity Cellulitis vs stasis dermatitis and lymphedema-Pt has many documented allergies. Will switch to keflex upon discharge for a total of 10 days. Appreciate recs from Dr. Cruz. Recommend compression stockings. Will prescribe upon discharge. Hx of PUD-continue protonix. Will order an FOBT and H.pylori. She had an EGD in 2012. Consider EGD outpatient if worsening sx. Abdominal Hernia-reducible but painful. Recommend outpatient follow-up. GERD-protonix Anemia, mixed- will start the patient on iron and folate, as well as mirilax to help with constipation. HTN-uncontrolled. Pt states she was allergic to enalapril. Will continue metoprolol at this time. Consider increasing dose if difficulty with bp control. Dispo-Anticipate discharge today. <Malena Torres - Last Filed: 04/26/17 09:17> Attending Addendum - Attending Addendum I personally evaluated the patient and discussed the management with Dr. Mick Munoz. I agree with the History, Examination, Assessment and Plan documented above with any addition or exceptions noted below. Patient finally with significant air movement and decreased wheezing. She has responded well to neb steroids. She is ambulating with minimal shortness of breath. If we can arrange for some medication assistance to help with inhaled steroids, she can likely be discharged later today. <Stef Khan - Last Filed: 04/26/17 11:55>
[2017-04-26] MEDS: Furosemide 40 MG TAB PO SCH (06:59)
[2017-04-26] MEDS: Potassium Chloride 10 MEQ TAB PO SCH (08:26)
[2017-04-26] MEDS: Ferrous Sulfate 325 MG TAB PO SCH (08:26)
[2017-04-26] MEDS: predniSONE 20 MG TAB PO SCH (08:26)
[2017-04-26] MEDS: Fluticasone Propionate Nasal Spray 16 gm Bottle NASAL SCH (08:27)
[2017-04-26] MEDS: cefTRIAXone\\ROCEPHIN 1 GM, Syringe 0.4 ML in Sterile Water 9.6 ML SLOW IVP SCH (08:27)
[2017-04-26] MEDS: Sucralfate 1 GM TAB PO SCH (08:28)
[2017-04-26] MEDS: Metoprolol Tartrate 25 MG TAB PO SCH (08:28)
[2017-04-26] MEDS: Folic Acid/Vit B Comp W-C PO SCH (08:29)
[2017-04-26] MEDS: Budesonide 0.5 MG/2 ML NEB INH SCH (10:58)
[2017-04-26 16:31] VITALS: BP 158/79; TEMP 97.9
--- NOTE | 2017-05-02 10:52 | EKG ---
Test Reason : Blood Pressure : / mmHG Vent. Rate : 122 BPM Atrial Rate : 122 BPM P-R Int : 142 ms QRS Dur : 100 ms QT Int : 342 ms P-R-T Axes : 075 -35 048 degrees QTc Int : 487 ms Sinus tachycardia Left axis deviation Nonspecific ST abnormality Abnormal ECG When compared with ECG of 21-APR-2017 21:55, (Unconfirmed) No significant change was found Confirmed by TIMO HURST ([id number]) on 05/02/2017 10:52:05 AM Referred By: NICOLE Confirmed By:TIMO HURST
== END 2017-04-26 16:10 | disposition home or self-care (01) | DRG 602 ==
LOC: ERS 21:40 → SJJU 04-22 01:13
PROVIDERS: ADMIT Family Medicine; ATTEND Family Medicine
DX: L03.116 Cellulitis of left lower limb (principal); J96.01 Acute respiratory failure with hypoxia; J44.1 Chronic obstructive pulmonary disease with (acute) exacerbation; I50.32 Chronic diastolic (congestive) heart failure; E46 Unspecified protein-calorie malnutrition; I11.0 Hypertensive heart disease with heart failure; K21.9 Gastro-esophageal reflux disease without esophagitis; B95.5 Unspecified streptococcus as the cause of diseases classified elsewhere; I87.2 Venous insufficiency (chronic) (peripheral); D64.9 Anemia, unspecified
CPT/HCPCS: 36415; 36416; 80053; 82607; 82728; 82746; 83540; 83550; 85025; 85652; 86140; 87338; 93005; 93010; 94640; 94760; 96374; A4216; G8978-GP-CK; G8979-GP-CK; G8980-GP-CK; J0696; J7506; J7620; J7626